=== PATIENT | female | born 1975 | race Caucasian/White ===

== ENCOUNTER 2017-02-18 06:46 | Emergency (ER) | payer BC, OTHER ==
[2017-02-18 06:56] VITALS: BMI 25.8
[2017-02-18 07:04] VITALS: BP 124/65; PULSE 74; RESP 17; TEMP 98.7; O2SAT 97
--- NOTE | 2017-02-18 07:27 | ED PDOC ---
Arrival/HPI - General Chief Complaint: Medical Clearance Time Seen by Provider: 02/18/17 07:13 Historian: Patient - History of Present Illness Narrative History of Present Illness (Text): 02/18/17 07:24 A 41 year old female, whose past medical history includes anxiety, depression and bipolar disorder, not on any medication, presents to the emergency department complaining of not being able to sleep for the past 7 days. Patient reports she took sleeping aid pills and other medications, with no relief. Patient denies any fever, chills, nausea, vomiting, diarrhea, abdominal pain, chest pain, shortness of breath or any other complaints. Patient reports she has a family history of insomnia. PMD: Dr. Tay Hernandez Time/Duration: Other (7 days) Symptom Course: Unchanged Quality: Other Context: Home Past Medical History - Provider Review Nursing Documentation Reviewed: Yes - Past History Past History: No Previous - Infectious Disease Hx of Infectious Diseases: None - Tetanus Immunization Tetanus Immunization: Unknown - Past Medical History Past Medical History: No Previous - Cardiac Hx Cardiac Arrhythmia: No Hx Congestive Heart Failure: No Hx Hypertension: No Hx Mitral Valve Prolapse: No Hx Pacemaker: No Hx Peripheral Edema: No - Pulmonary Hx Asthma: No Hx Bronchitis: No Hx Chronic Obstructive Pulmonary Disease (COPD): No Hx Emphysema: No Hx Pneumonia: No Hx Sleep Apnea: No - Neurological Hx Alzheimer's Disease: No Hx Dementia: No Hx Migraine: No Hx Parkinson's Disease: No Hx Seizures: No Hx Transient Ischemic Attacks (TIA): No - HEENT Hx HEENT Disorder: No - Renal Hx Renal Disorder: No - Endocrine/Metabolic Hx Endocrine Disorders: No - Hematological/Oncological Hx Blood Disorders: No - Integumentary Hx Dermatological Disorder: No - Musculoskeletal/Rheumatological Hx Arthritis: Yes (right hip) - Gastrointestinal Hx Gastrointestinal Disorders: No - Genitourinary/Gynecological Hx Sexually Transmitted Diseases: Yes (Herpes) - Psychiatric Hx Bipolar Disorder: Yes Hx Depression: Yes Hx Substance Use: Yes - Past Surgical History Past Surgical History: No Previous - Surgical History Hx Coronary Stent: No Hx Orthopedic Surgery: Yes (R Elbow sx) - Anesthesia Hx Anesthesia: Yes Hx Anesthesia Reactions: No Hx Malignant Hyperthermia: No - Suicidal Assessment Feels Threatened In Home Enviroment: No Family/Social History - Physician Review Nursing Documentation Reviewed: Yes Family/Social History: No Known Family HX Smoking Status: Light Smoker < 10 Cigarettes Daily Hx Alcohol Use: Yes Hx Substance Use: Yes Substance used: marijuana, opiods Hx Substance Use Treatment: No Allergies/Home Meds Allergies/Adverse Reactions: Allergies No Known Allergies Allergy (Verified 02/09/16 13:54) Home Medications: Home Meds Medication Instructions Recorded Confirmed Tramadol HCl [Tramadol HCl] 50 mg PO PRN PRN 07/11/15 07/11/15 Review of Systems - Physician Review All systems were reviewed & negative as marked: Yes - Review of Systems Constitutional: Other (Unable to sleep). absent: Fevers, Night Sweats Respiratory: absent: SOB Cardiovascular: absent: Chest Pain Gastrointestinal: absent: Abdominal Pain, Nausea, Vomiting Physical Exam Vital Signs Reviewed: Yes Vital Signs Temp Pulse Resp BP Pulse Ox 02/18/17 07:03 98.7 F 74 17 124/65 97 Temperature: Afebrile Blood Pressure: Normal Pulse: Regular Respiratory Rate: Normal Appearance: Positive for: Well-Appearing, Non-Toxic, Comfortable Pain Distress: None Mental Status: Positive for: Alert and Oriented X 3 - Systems Exam Head: Present: Atraumatic, Normocephalic Pupils: Present: PERRL Extroacular Muscles: Present: EOMI Conjunctiva: Present: Normal Mouth: Present: Moist Mucous Membranes Neurological: Present: GCS=15, CN II-XII Intact, Speech Normal Skin: Present: Warm, Dry, Normal Color. No: Rashes Psychiatric: Present: Alert, Oriented x 3, Normal Insight, Normal Concentration Medical Decision Making ED Course and Treatment: 02/18/17 08:45 Patient evaluated by PES susanne rBaga, who states patient can be discharged home with prescription for Trazodone. Plan discussed with the patient, who expresses understanding. Patient in agreement with plan to be discharged home. Patient is stable for discharge. Patient was instructed to follow up with psychiatrist or return if symptoms worsen or new concerning symptoms arise. - Scribe Statement The provider has reviewed the documentation as recorded by the Chandra King Provider Scribe Attestation: All medical record entries made by the Scribe were at my direction and personally dictated by me. I have reviewed the chart and agree that the record accurately reflects my personal performance of the history, physical exam, medical decision making, and the department course for this patient. I have also personally directed, reviewed, and agree with the discharge instructions and disposition. Disposition/Present on Arrival - Present on Arrival Any Indicators Present on Arrival: No History of DVT/PE: No History of Uncontrolled Diabetes: No Urinary Catheter: No History of Decub. Ulcer: No History Surgical Site Infection Following: None - Disposition Diagnosis: Sleep disturbance Disposition: HOME/ ROUTINE Disposition Time: 08:45 Patient Problems: Current Active Problems Problem Status Onset Sleep disturbance Acute Condition: STABLE Additional Instructions: Please follow up with your primary doctor. Return to the ER for any worsening symptoms or for any other concerns. Referrals: Tay Hernandez MD [Primary Care Provider] - Follow up with primary
--- NOTE | 2017-02-18 11:14 | CON ---
DATE: 02/18/2017 HISTORY OF PRESENT ILLNESS: Shortly, the patient is a 41-year-old female with reported history of bi polar disorder and insomnia. The patient came to the hospital looking for help for her insomnia. Th e patient reported that she was not sleeping for about 7 days. The patient has long history of menta l illness, has previous hospitalization to the psychiatric inpatient unit. Most recent was in [address] Rahman's name and Dr. Gerardo's name. The patient was not compliant with the medication and followup appointment. The patient has a second time worker job and patient requested to have some medication for her insomnia. The patient was offered admission to the psychiatric inpatient unit because of dep ressed mood as well as irritability and not able to sleep, difficult to stay focused, but the patient declined that offer. The patient reported that with sleeping aid, patient will be able to function well. The patient denied voices, denied seeing things, denied paranoid ideation. The patient does n ot present to be psychotic. The patient has future oriented plans. The patient has stable home. VITAL SIGNS: Stable. Temperature is 98.7, pulse 74, respirations 17, oxygen saturation is 97. MEDICATIONS: Reviewed, none. LABORATORY DATA: Reviewed. Cannabis positive. Besides that, everything within normal limits. MENTAL STATUS EXAMINATION: The patient presented to be calm, cooperative, social appropriate. Fair eye contact. Speech was normal rate, tone, quality, and quantity. Mood described, "I am irritable a nd I cannot sleep." Affect was reactive, mood congruent. Thought process was coherent and goal dire cted. Thought content: The patient denied visual, auditory, tactile hallucinations. Denied paranoi d ideations. The patient denied thoughts of harming herself or others, denied intent or plan. No ps ychotic symptoms were elicited or reported. Insight and judgment fair. Impulses are well controlled . IMPRESSION: As per history, bipolar disorder, insomnia, history of anxiety disorder, cannabis abuse. PLAN: The patient reported that she was doing well on trazodone 150 mg in the past. This script writer edu cated about risks, benefits, alternatives of that medication. The patient verbalized understanding. Will provide 50 mg of trazodone prescription for a 7-day supply. The patient initiated intake at [facility] outpatient clinic. The patient was advised to take medication as it was prescribed and follow up with outpatient psychiatrist and therapist. The patient said that she w ill definitely do so. Besides that, there are no other complaints. Case was discussed with Dr. Jessica kessler. Should you have any questions, give me a call back. Thank you very much for letting me participate in the care of your patient. Sharmaine Shanks MD cc: [id number] TT: 02/18/2017 11:13:41 Confirmation # [id number] Dictation # [id number] rn
== END 2017-02-18 09:00 | disposition home or self-care (01) ==
LOC: ED 06:46
DX: G47.9 Sleep disorder, unspecified (principal); F17.210 Nicotine dependence, cigarettes, uncomplicated

== ENCOUNTER 2017-02-25 11:09 | Inpatient (IN) | payer OTHER ==
[2017-02-25 11:09] VITALS: BMI 25.8
--- NOTE | 2017-02-25 11:26 | ED PDOC ---
Arrival/HPI - General Time Seen by Provider: 02/25/17 11:10 Historian: Patient - History of Present Illness Narrative History of Present Illness (Text): 02/25/17 11:20 41 year old female whose past medical history includes depression and bipolar disorder presents with suspected manic episode. Patient is pacing around the emergency department yelling obscenities at the staff. Noted patient was evaluated by PES 1 week ago and discharged home. Patient states she wants to hurt other people. Time/Duration: < week Symptom Onset: Gradual Symptom Course: Unchanged Modifying Factors (Text): None Past Medical History - Provider Review Nursing Documentation Reviewed: Yes - Past History Past History: No Previous - Infectious Disease Hx of Infectious Diseases: None - Tetanus Immunization Tetanus Immunization: Unknown - Past Medical History Past Medical History: No Previous - Cardiac Hx Cardiac Arrhythmia: No Hx Congestive Heart Failure: No Hx Hypertension: No Hx Mitral Valve Prolapse: No Hx Pacemaker: No Hx Peripheral Edema: No - Pulmonary Hx Asthma: No Hx Bronchitis: No Hx Chronic Obstructive Pulmonary Disease (COPD): No Hx Emphysema: No Hx Pneumonia: No Hx Sleep Apnea: No - Neurological Hx Alzheimer's Disease: No Hx Dementia: No Hx Migraine: No Hx Parkinson's Disease: No Hx Seizures: No Hx Transient Ischemic Attacks (TIA): No - HEENT Hx HEENT Disorder: No - Renal Hx Renal Disorder: No - Endocrine/Metabolic Hx Endocrine Disorders: No - Hematological/Oncological Hx Blood Disorders: No - Integumentary Hx Dermatological Disorder: No - Musculoskeletal/Rheumatological Hx Arthritis: Yes (right hip) - Gastrointestinal Hx Gastrointestinal Disorders: No - Genitourinary/Gynecological Hx Sexually Transmitted Diseases: Yes (Herpes) - Psychiatric Hx Bipolar Disorder: Yes Hx Depression: Yes Hx Substance Use: Yes - Past Surgical History Past Surgical History: No Previous - Surgical History Hx Coronary Stent: No Hx Orthopedic Surgery: Yes (R Elbow sx) - Anesthesia Hx Anesthesia: Yes Hx Anesthesia Reactions: No Hx Malignant Hyperthermia: No - Suicidal Assessment Feels Threatened In Home Enviroment: No Family/Social History - Physician Review Nursing Documentation Reviewed: Yes Family/Social History: Unknown Family HX Smoking Status: Light Smoker < 10 Cigarettes Daily Hx Alcohol Use: Yes Hx Substance Use: Yes Substance used: marijuana, opiods Hx Substance Use Treatment: No Allergies/Home Meds Allergies/Adverse Reactions: Allergies No Known Allergies Allergy (Verified 02/09/16 13:54) Review of Systems - Physician Review All systems were reviewed & negative as marked: Yes - Review of Systems Respiratory: absent: Cough Cardiovascular: absent: Chest Pain Gastrointestinal: absent: Abdominal Pain Neurological: absent: Dizziness Psychiatric: Other (Homicidal ideation, Suspected manic episode) Physical Exam Vital Signs Reviewed: Yes Vital Signs Temp Pulse Resp BP Pulse Ox 02/25/17 11:42 98.5 F 113 H 20 137/98 H 99 Temperature: Afebrile Blood Pressure: Normal Pulse: Tachycardic Respiratory Rate: Normal Appearance: Positive for: Well-Appearing, Non-Toxic Pain Distress: None Mental Status: Positive for: Alert and Oriented X 3 - Systems Exam Head: Present: Atraumatic, Normocephalic Pupils: Present: PERRL Extroacular Muscles: Present: EOMI Conjunctiva: Present: Normal Mouth: Present: Moist Mucous Membranes Neck: Present: Normal Range of Motion Respiratory/Chest: Present: Clear to Auscultation, Good Air Exchange. No: Respiratory Distress, Accessory Muscle Use Cardiovascular: Present: Regular Rate and Rhythm, Normal S1, S2. No: Murmurs Abdomen: Present: Normal Bowel Sounds. No: Tenderness, Distention, Peritoneal Signs Back: Present: Normal Inspection Upper Extremity: Present: Normal Inspection. No: Cyanosis, Edema Lower Extremity: Present: Normal Inspection. No: Edema Neurological: Present: GCS=15, CN II-XII Intact, Speech Normal Skin: Present: Warm, Dry, Normal Color. No: Rashes Psychiatric: Present: Alert, Oriented x 3, Normal Concentration, Agitated, Homicidal Ideation, Other (Yelling obscenities) Medical Decision Making ED Course and Treatment: Impression: 41 year old female whose past medical history includes depression and bipolar disorder presents with suspected manic episode Differential Diagnosis include but are not limited to: Manic episode Plan: -- EKG, Chest X-ray -- Ativan -- Labs -- PES -- Reassess and disposition Prior Visits: Notes and results from previous visits were reviewed. Patient last seen in ED on 02/18/17 complaining of lack of sleep, seen by PES, and discharged home. Progress Notes: 02/25/17 12:45 pt with nonspecific ekg changes, no cardiopulm complaints. trop neg. now cooperative s/p ativan. pt cleared for pes. accepte dby dr valle - Lab Interpretations Lab Results: 02/25/17 11:30 02/25/17 11:30 Lab Results 02/25/17 11:30: Alcohol, Quantitative < 10 02/25/17 11:30: Salicylates < 1 L, Acetaminophen < 10.0 L 02/25/17 11:30: Urine Opiates Screen Negative, Urine Methadone Screen Negative, Ur Barbiturates Screen Negative, Ur Phencyclidine Scrn Negative, Ur Amphetamines Screen Negative, U Benzodiazepines Scrn Positive H, U Oth Cocaine Metabols Negative, U Cannabinoids Screen Positive H 02/25/17 11:30: Sodium 143, Potassium 3.9, Chloride 109 H, Carbon Dioxide 21, Anion Gap 17, BUN 9, Creatinine 0.8, Est GFR ( Amer) > 60, Est GFR (Non- Af Amer) > 60, Random Glucose 133 H, Calcium 9.8, Total Bilirubin 0.8, AST 19, ALT 23, Alkaline Phosphatase 81, Lactate Dehydrogenase 437, Total Creatine Kinase 73, Troponin I < 0.01, Total Protein 8.5 H, Albumin 5.1 H, Globulin 3.4, Albumin/Globulin Ratio 1.5 02/25/17 11:30: Urine Color Yellow, Urine Appearance Sl cloudy, Urine pH 5.5, Ur Specific [place] 1.015, Urine Protein Negative, Urine Glucose (UA) Negative, Urine Ketones Negative, Urine Blood Small H, Urine Nitrate Negative, Urine Bilirubin Negative, Urine Urobilinogen 0.2, Ur Leukocyte Esterase Moderate H, Urine RBC 0 - 2, Urine WBC 1 - 3, Ur Epithelial Cells 6 - 8, Urine Bacteria Few , Urine HCG, Qual Negative 02/25/17 11:30: WBC 10.1 D, RBC 5.63, Hgb 17.0 H, Hct 47.2, MCV 83.8, MCH 30.2 , MCHC 36.0, RDW 13.0, Plt Count 412, MPV 9.4, Gran % 60.9, Lymph % (Auto) 32.1 , [place] % (Auto) 4.4, Eos % (Auto) 1.9, Baso % (Auto) 0.7, Gran # 6.18, Lymph # 3.3, [place] # 0.5, Eos # 0.2, Baso # 0.07 - RAD Interpretation Radiology Orders: 02/25/17 11:19 CHEST PORTABLE [RAD] Stat - EKG Interpretation Interpreted by ED Physician: Yes (EKG shows NSR at 73 BPM, nonspecific ST/T wave changes) Type: 12 lead EKG - Medication Orders Current Medication Orders: Discontinued Medications Lorazepam (Ativan) 2 mg IM STAT STA Stop: 02/25/17 11:20 Last Admin: 02/25/17 11:30 Dose: 2 mg - Scribe Statement The provider has reviewed the documentation as recorded by the Chandra Rubio Provider Scribe Attestation: All medical record entries made by the Chandra were at my direction and personally dictated by me. I have reviewed the chart and agree that the record accurately reflects my personal performance of the history, physical exam, medical decision making, and the department course for this patient. I have also personally directed, reviewed, and agree with the discharge instructions and disposition. Disposition/Present on Arrival - Present on Arrival Any Indicators Present on Arrival: No History of DVT/PE: No History of Uncontrolled Diabetes: No Urinary Catheter: No History Surgical Site Infection Following: None - Disposition Have Diagnosis and Disposition been Completed?: Yes Diagnosis: Bipolar 1 disorder Disposition: HOSPITALIZED Disposition Time: 12:39 Patient Problems: Current Active Problems Problem Status Onset Bipolar 1 disorder Acute Condition: STABLE Referrals: Luis Sal, [Primary Care Provider] - Follow up with primary
[2017-02-25 11:43] VITALS: O2SAT 99
[2017-02-25 11:51] LABS: BASO # 0.07 K/mm3 (0.0-2.0); BASO % 0.7 % (0.0-3.0); EOS # 0.2 (0.0-0.7); EOS % 1.9 % (1.5-5.0); GRAN # 6.18 (1.4-6.5); GRAN % 60.9 % (50.0-68.0); LYMPH # 3.3 (1.2-3.4); LYMPH % 32.1 % (22.0-35.0); MEAN CELL VOLUME 83.8 fL (80.0-105.0); MEAN CORPUSCULAR HEMOGLOBIN 30.2 pg (25.0-35.0); MEAN PLATELET VOLUME 9.4 fl (7.0-11.0); MONO # 0.5 (0.1-0.6); MONO % 4.4 % (1.0-6.0); PH,URINE 5.5 (4.7-8.0); PLATELET COUNT 412 10^3/uL (120.0-450.0); RBC 5.63 10^6/uL (3.5-6.1); URINE BILIRUBIN NEGATIVE (NEGATIVE); URINE BLOOD SMALL (NEGATIVE); URINE GLUCOSE (UA) NEGATIVE (NEGATIVE); URINE LEUKOCYTE ESTERASE MODERATE Leu/uL (NEGATIVE); URINE NITRATE NEGATIVE (NEGATIVE); URINE PROTEIN NEGATIVE mg/dL (<30 mg/dL); URINE UROBILINOGEN 0.2 E.U./dL (<1 E.U./dL); WHITE BLOOD COUNT 10.1 10^3/ul (4.5-11.0)
[2017-02-25 11:52] LABS: URINE APPEARANCE SL CLOUDY (CLEAR); URINE COLOR YELLOW (YELLOW)
[2017-02-25 11:54] LABS: URINE BACTERIA FEW (NEG); URINE RBC 0 - 2 /hpf (0-2)
[2017-02-25 11:55] LABS: HCG,QUALITATIVE URINE NEGATIVE (NEGATIVE)
[2017-02-25 12:01] LABS: SALICYLATE < 1 mg/dL (2.0-20.0)
[2017-02-25 12:07] LABS: ALB/GLOB RATIO 1.5 (1.1-1.8); ALBUMIN 5.1 g/dL (3.0-4.8); ALT/SGPT 23 U/L (7-56); AST/SGOT 19 U/L (15-39); BLOOD UREA NITROGEN 9 mg/dL (7-21); CALCIUM 9.8 mg/dL (8.4-10.5); GFR AFRICAN-AMERICAN > 60; GFR NON-AFRICAN AMERICAN > 60
[2017-02-25 12:15] LABS: ACETAMINOPHEN < 10.0 ug/ml (10.0-20.0)
[2017-02-25 12:16] LABS: BARBITURATES, UR NEGATIVE (NEGATIVE); BENZODIAZEPINES, UR POSITIVE (NEGATIVE); OPIATES, UR NEGATIVE (NEGATIVE); PHENCYCLIDINE, UR NEGATIVE (NEGATIVE)
[2017-02-25 12:39] LABS: TROPONIN I < 0.01 ng/mL
--- NOTE | 2017-02-25 13:15 | RAD ---
HISTORY: pes COMPARISON: No prior. FINDINGS: LUNGS: No active pulmonary disease. PLEURA: No significant pleural effusion identified, no pneumothorax apparent. CARDIOVASCULAR: Normal. OSSEOUS STRUCTURES: No significant abnormalities. VISUALIZED UPPER ABDOMEN: Normal. OTHER FINDINGS: None. IMPRESSION: No active disease.
--- NOTE | 2017-02-25 17:03 | PCM.BM ---
<Jake Corona - Last Filed: 02/25/17 17:08> Treatment Plan Problems - Problems identified on initial assessmt AGITATED/AGGRESSIVE Date Initiated: 02/25/17 Time Initiated: 17:02 Assessment reference: NA Status: Active ALTERED SLEEP PATTERN Date Initiated: 02/25/17 Time Initiated: 17:03 Assessment reference: NA Status: Active ALTERED THOUGHT PROCESS Date Initiated: 02/25/17 Time Initiated: 17:04 Assessment reference: NA Status: Active (AUDITORY HALLUCINATIONS) INEFFECTIVE IMPULSE CONTROL Date Initiated: 02/25/17 Time Initiated: 17:06 Assessment reference: NA Status: Active Treatment assets and liabiliti Patient Assests: adapts well, motivated, self-reliant, physically healthy, negotiates basic needs, financial stabiity Patient Liabilities: relationship conflicts - Milieu Protocol Maintain good personal hygiene: daily Encourage regular showers, daily Remind patient to perform daily oral care, daily Assist patient to perform ADL's Maintain personal safety: daily Educate patient to report safety concerns to staff, daily Monitor environment for contraband/sharps Medication safety: Monitor for expected outcome, potential side effects: daily, Assess barriers to learning: daily, Assess readiness for medication education: daily Discharge/Continuing Care - Education Needs Education Needs: Family Medication, Family Diagnosis/Disease Process, Family Coping Skills, Family Anger Management skills, Family Activities of Daily Living - Discharge Discharge Criteria: Tolerates medication w/o severe side effects, Free of Suicidal thoughts, Free of Homicidal thoughts, Free of paranoid thoughts, Free of agitation, Normal sleep pattern Discharge to:: Home <Sharmaine Shanks - Last Filed: 02/28/17 11:54> - Diagnosis (1) Psychosis Status: Acute Interventions: 02/26/17 08:41 * Assess/adjust medications daily and /or as needed * Discuss risks, benefits, sided effects and alternatives of medications * See patient on an individual basis 7x/week to assess level of delusional thoughts/ideation, hallucinations * medication compliance * regular follow up with outpatient psychiatrist * coping strategies * substance abuse prevention * suicide and homicide prevention (2) Bipolar 1 disorder Status: Acute Interventions: 02/26/17 08:42 * Assess/adjust medications daily and /or as needed * See patient on an individual basis 7x/week to assess level of manic behaviors and stability * Discuss risks, benefits, side effects and alternatives of medications * medications compliance * safety plan * regular follow up with psychiatrist * suicide and homicide prevention * coping strategies * substance abuse prevention * sleep regulation, sleep hygiene <Shanta Ching - Last Filed: 02/28/17 14:49> Family Contact Family involvement: Family/SO is involved - Goals for Treatment Patient's family/SO goals for treatment: To find an outpatient provider.
--- NOTE | 2017-02-25 20:00 | CARD ---
APPROVED REPORT EKG Measurement Heart [id number] <Conclusion> Normal sinus rhythm with sinus arrhythmia Junctional ST depression, probably normal Borderline ECG
[2017-02-25] MEDS: Divalproex 500 mg DR(BID formulation) PO SCH (22:09)
[2017-02-26 07:42] LABS: GLUCOSE,FASTING 96 mg/dL (65-110); HDL CHOLESTEROL 51 mg/dL (29-60)
[2017-02-26 07:52] LABS: LDL CHOLESTEROL 124 mg/dL (0-129)
[2017-02-26 07:59] LABS: FREE T4 1.01 ng/dL (0.78-2.19)
[2017-02-26] MEDS: Divalproex 500 mg DR(BID formulation) PO SCH ×2 (09:27→21:03)
[2017-02-26] MEDS ORDERED: Magnesium Hydroxide Susp 30 ml UD ONE (17:49)
[2017-02-26] MEDS ORDERED: Magnesium Hydroxide Susp 30 ml UD PO PRN (21:13)
[2017-02-26] MEDS ORDERED: Alum-Mag Hydrox-Simethicone Susp (30 mL) PO PRN (21:14)
--- NOTE | 2017-02-26 22:00 | CP.PCM.CON ---
History of Present Illness - History of Present Illness History of Present Illness: I was called to do a consult on Brianda Hassan in the psychiatric floor I saw her resting in bed she is a 41-year-old white female with history of being in out of the emergency room with manic episodes and this time stating she wants to hurt other people PES evaluate her a week ago and discharged home she is a past medical history includes depression anxiety bipolar manic episodes history of herpes substance abuse she had a right elbow fracture in the past unknown family history she still smokes she drinks alcohol substance abuse including marijuana and opioids no known drug allergies review of systems no acute vision changes no hearing changes no sore throat no chest pain of palpitations or shortness of breath no cough no abdominal pain no constipation diarrhea nausea vomiting not dizzy manic states she wants her other people but at this time pleasant and calm Review of Systems - Musculoskeletal Additional comments: Right elbow pain from recent surgery Past Patient History - Infectious Disease Hx of Infectious Diseases: None - Tetanus Immunizations Tetanus Immunization: Unknown - Past Social History Smoking Status: Light Smoker < 10 Cigarettes Daily - CARDIAC Hx Cardia Arrhythmia: No Hx Congestive Heart Failure: No Hx Hypertension: No Hx Mitral Valve Prolapse: No Hx Pacemaker: No Hx Peripheral Edema: No - PULMONARY Hx Asthma: No Hx Bronchitis: No Hx Chronic Obstructive Pulmonary Disease (COPD): No Hx Emphysema: No Hx Pneumonia: No Hx Sleep Apnea: No - NEUROLOGICAL Hx Alzheimer's Disease: No Hx Dementia: No Hx Migraine: No Hx Parkinson's Disease: No Hx Seizures: No Hx Transient Ischemic Attacks (TIA): No - HEENT Hx HEENT Problems: No - RENAL Hx Chronic Kidney Disease: No - ENDOCRINE/METABOLIC Hx Endocrine Disorders: No - HEMATOLOGICAL/ONCOLOGICAL Hx Blood Disorders: No - INTEGUMENTARY Hx Dermatological Problems: No - MUSCULOSKELETAL/RHEUMATOLOGICAL Hx Arthritis: Yes (right hip) - GASTROINTESTINAL Hx Gastrointestinal Disorders: No - GENITOURINARY/GYNECOLOGICAL Hx Sexually Transmitted Disorders: Yes (Herpes) - PSYCHIATRIC Hx Bipolar Disorder: Yes Hx Substance Use: Yes - SURGICAL HISTORY Hx Coronary Stent: No Hx Orthopedic Surgery: Yes (R Elbow sx) - ANESTHESIA Hx Anesthesia: Yes Hx Anesthesia Reactions: No Hx Malignant Hyperthermia: No Meds Allergies/Adverse Reactions: Allergies Allergy/AdvReac Type Severity Reaction Status Date / Time No Known Allergies Allergy Verified 02/25/17 17:10 - Medications Medications: Current Medications Acetaminophen (Tylenol 325mg Tab) 650 mg PO Q6H PRN PRN Reason: MILD TO MOD PAIN Al Hydrox/Mg Hydrox/Simethicone (Maalox Plus 30 Ml) 30 ml PO DAILY PRN PRN Reason: HEARTBURN/INDIGESTION Clonazepam (Klonopin) 1 mg PO HS HEENA PRN Reason: Protocol Last Admin: 02/26/17 21:03 Dose: 1 mg Clonazepam (Klonopin) 1 mg PO BID HEENA PRN Reason: Protocol Divalproex Sodium (Depakote Dr(*Bid*)) 500 mg PO [facility] Last Admin: 02/26/17 21:03 Dose: 500 mg Magnesium Hydroxide (Milk Of Magnesia) 30 ml PO DAILY PRN PRN Reason: constipation Nicotine (Nicoderm Cq) 1 patch TD DAILY [facility]EENA Risperidone (Risperdal Tab) 1 mg PO BID HEENA PRN Reason: Protocol Ziprasidone (Geodon Cap) 20 mg PO Q6H PRN; Protocol PRN Reason: Agitation Last Admin: 02/26/17 21:02 Dose: 20 mg Ziprasidone (Geodon Inj) 20 mg IM Q6H PRN; Protocol PRN Reason: Agitation Zolpidem Tartrate (Ambien) 5 mg PO HS HEENA PRN Reason: Protocol Last Admin: 02/26/17 21:03 Dose: 5 mg Physical Exam - Constitutional Appears: No Acute Distress - Head Exam Head Exam: ATRAUMATIC, NORMAL INSPECTION, NORMOCEPHALIC - ENT Exam ENT Exam: Mucous Membranes Dry - Respiratory Exam Respiratory Exam: Clear to Auscultation Bilateral, NORMAL BREATHING PATTERN - Cardiovascular Exam Cardiovascular Exam: REGULAR RHYTHM - GI/Abdominal Exam GI & Abdominal Exam: Normal Bowel Sounds - Extremities Exam Extremities exam: Positive for: normal inspection - Neurological Exam Neurological exam: Alert, CN II-XII Intact, Oriented x3 - Psychiatric Exam Psychiatric exam: Anxious - Skin Skin Exam: Warm Results - Vital Signs Recent Vital Signs: Last Vital Signs Temp 98.6 F 02/25/17 13:45 Pulse 79 02/25/17 16:00 Resp 16 02/25/17 13:45 BP 147/84 02/25/17 16:00 Pulse Ox 99 02/25/17 13:45 - Labs Result Diagrams: 02/25/17 11:30 02/25/17 11:30 Labs: Laboratory Results - last 24 hr 02/26/17 02/26/17 07:10 07:10 Fasting Glucose 96 Triglycerides 96 Cholesterol 182 LDL Cholesterol Direct 124 HDL Cholesterol 51 Free T4 1.01 TSH 3rd Generation 0.90 Assessment & Plan - Assessment and Plan (Free Text) Assessment: She is here with manic phase of bipolar with high blood sugar will watch that marijuana and opioid use Plan: We will recheck the labs encouraged her to participate in psychiatric groups take the medication hopefully she will improve watch medically I went over all the labs EKGs and chest x-rays will discuss with the psychiatrist
[2017-02-27] MEDS: Divalproex 500 mg DR(BID formulation) PO SCH ×2 (09:35→21:24)
--- NOTE | 2017-02-27 11:02 | PCM.PYCHPN ---
Psychiatric Progress Note - Psychiatric Progress Note Patient seen today, length of contact: 30min Patient Chief Complaint: "I feel irritable still, I have thoughts of harming myself, but no plan, I have no complaints about my medications..." Problems Identified/Issues Discussed: Suicide/ homicide prevention, past psychiatric h/o, current psychiatric symptoms , medical problems, risk/benefits and alternatives of medications, medications compliance, coping strategies, substance abuse h/o, relapse prevention, importance of follow up with psychiatrist and therapist, discharge plan. Medical Problems: pt reported being healthy high blood sugar Diagnostic Results: 02/25/17 11:30 02/25/17 11:30 Lab Results 02/26/17 07:10: Free T4 1.01, TSH 3rd Generation 0.90 02/26/17 07:10: Fasting Glucose 96, Triglycerides 96, Cholesterol 182, LDL Cholesterol Direct 124, HDL Cholesterol 51 02/25/17 11:30: Alcohol, Quantitative < 10 02/25/17 11:30: Salicylates < 1 L, Acetaminophen < 10.0 L 02/25/17 11:30: Urine Opiates Screen Negative, Urine Methadone Screen Negative, Ur Barbiturates Screen Negative, Ur Phencyclidine Scrn Negative, Ur Amphetamines Screen Negative, U Benzodiazepines Scrn Positive H, U Oth Cocaine Metabols Negative, U Cannabinoids Screen Positive H 02/25/17 11:30: Sodium 143, Potassium 3.9, Chloride 109 H, Carbon Dioxide 21, Anion Gap 17, BUN 9, Creatinine 0.8, Est GFR ( Amer) > 60, Est GFR (Non- Af Amer) > 60, Random Glucose 133 H, Calcium 9.8, Total Bilirubin 0.8, AST 19, ALT 23, Alkaline Phosphatase 81, Lactate Dehydrogenase 437, Total Creatine Kinase 73, Troponin I < 0.01, Total Protein 8.5 H, Albumin 5.1 H, Globulin 3.4, Albumin/Globulin Ratio 1.5 02/25/17 11:30: Urine Color Yellow, Urine Appearance Sl cloudy, Urine pH 5.5, Ur Specific [place] 1.015, Urine Protein Negative, Urine Glucose (UA) Negative, Urine Ketones Negative, Urine Blood Small H, Urine Nitrate Negative, Urine Bilirubin Negative, Urine Urobilinogen 0.2, Ur Leukocyte Esterase Moderate H, Urine RBC 0 - 2, Urine WBC 1 - 3, Ur Epithelial Cells 6 - 8, Urine Bacteria Few , Urine HCG, Qual Negative 02/25/17 11:30: WBC 10.1 D, RBC 5.63, Hgb 17.0 H, Hct 47.2, MCV 83.8, MCH 30.2 , MCHC 36.0, RDW 13.0, Plt Count 412, MPV 9.4, Gran % 60.9, Lymph % (Auto) 32.1 , [place] % (Auto) 4.4, Eos % (Auto) 1.9, Baso % (Auto) 0.7, Gran # 6.18, Lymph # 3.3, [place] # 0.5, Eos # 0.2, Baso # 0.07 Vital Signs Temp Pulse Resp BP Pulse Ox 02/27/17 07:43 98.4 F 67 20 135/69 02/25/17 16:00 79 147/84 02/25/17 13:45 98.6 F 70 16 116/88 99 02/25/17 11:42 98.5 F 113 H 20 137/98 H 99 DSM 5 Symptoms Update: shortly pt is 41yo female, reported h/o bipolar disorder, h/o psychiatric admissions, most recent was in 2013, h/o suicidal attempts (most recent was about 5-6 years ago by overdose on meds), pt currently employed, lives with her 20yo son. Pt was seen by this content writer in the ED 02/18, this content writer offered admission, pt did not want to stay, this content writer provided pt with prescription for Trazodone (pt tolerated this medication well in the past), pt said that she has scheduled appt in the [facility], pt was d/c AMA. this time pt came to the hospital looking for help for her depressive/ manic episode, irritability, suicidal and homicidal ideation, was not able to contract for safety, pt needed to be medicated in ED. at the day of admission pt was agitated, threw tray, needed to be medicated ([facility] [place]) pt requested to be alone in the room because pt was not able to control her anger. yesterday pt was agitated, showing middle finger to RN, tried to destroy unit decorations, needed to be medicated, redirected. today pt has some improvement with her irritability, was able to sit still (yesterday pt was pacing in the unit, was not able to stay still, agitated), was able to concentrate and watching TV. pt said that she slept better but "I woke up at 5am and was not able to fall asleep", pt said that she is still irritable, now she has thoughts of harming self only, denied thoughts of harming others, pt said she still have "voices in my head, not in my ears". pt has labile affect still. pt tolerates meds well, no side effects observed or reported, AIMS 0, no EPS. as pt RN report pt was compliant with meds, no behavioral incidents, pt still irritable, with some improvement with controlling her impulses. Impression: Bipolar disorder I, mixed episode, severe with psychosis cannabis abus r/o substance induced mood disorder Medication Change: Yes (ambien increased) Medical Record Reviewed: Yes Consults ordered or reviewed: consult appreciated Mental Status Examination - Cognitive Function Orientation: Person Memory: Intact Attention: Poor Concentration: Poor Association: WNL Fund of Knowledge: WNL - Mood Mood: Depressed (irritable and angry), Anxious - Affect Affect: Constricted (irritable, mood congruent), Flat - Speech Speech: Appropriate - Formal Thought Process Formal Thought Process: Hallucinations ("I hear voices in my head") - Suicidal Ideation Suicidal Ideation: Yes Plan: denied intent or plan contracted for safety - Homicidal Ideation Homicidal Ideation: Yes Goal/Treatment Plan - Goal/Treatment Plan Need for Continued Stay: Remain at risks for inpatient hospitalization, Severe depression anxiety, Discharge may exacerbated symptoms, Severe functional impairment Progress Toward Problem(s) and Goals/Treatment Plan: milieu/structure/supportive therapy depakote 500mg bid for mood stabilization risperdal 1mg bid (pt was started 0.5mg tid, tolerated well yesterday) ambien 10mg po hs for insomnia klonpin 1mg tid for mood stabilization d/c xanax, addictive med consult appreciated prn meds will monitor closely Estimated Date of D/C: 03/04/17 (will monitor closely)
--- NOTE | 2017-02-27 11:08 | CP.PCM.PN ---
Subjective - Date & Time of Evaluation Date of Evaluation: 02/27/17 Time of Evaluation: 10:00 - Subjective Subjective: seen in room feeling much better no c/os back on her meds no more bad thoughts eats well participating Objective - Vital Signs/Intake and Output Vital Signs (last 24 hours): Temp Pulse Resp BP Pulse Ox 98.4 F 67 20 135/69 99 02/27/17 07:43 02/27/17 07:43 02/27/17 07:43 02/27/17 07:43 02/25/17 13:45 - Medications Medications: Current Medications Acetaminophen (Tylenol 325mg Tab) 650 mg PO Q6H PRN PRN Reason: MILD TO MOD PAIN Al Hydrox/Mg Hydrox/Simethicone (Maalox Plus 30 Ml) 30 ml PO DAILY PRN PRN Reason: HEARTBURN/INDIGESTION Clonazepam (Klonopin) 1 mg PO HS HEENA PRN Reason: Protocol Last Admin: 02/26/17 21:03 Dose: 1 mg Clonazepam (Klonopin) 1 mg PO BID HEENA PRN Reason: Protocol Last Admin: 02/27/17 09:35 Dose: 1 mg Divalproex Sodium (Depakote Dr(*Bid*)) 500 mg PO [facility] Last Admin: 02/27/17 09:35 Dose: 500 mg Magnesium Hydroxide (Milk Of Magnesia) 30 ml PO DAILY PRN PRN Reason: constipation Nicotine (Nicoderm Cq) 1 patch TD DAILY [facility] Last Admin: 02/27/17 09:35 Dose: 1 patch Risperidone (Risperdal Tab) 1 mg PO BID HEENA PRN Reason: Protocol Last Admin: 02/27/17 09:34 Dose: 1 mg Ziprasidone (Geodon Cap) 20 mg PO Q6H PRN; Protocol PRN Reason: Agitation Last Admin: 02/26/17 21:02 Dose: 20 mg Ziprasidone (Geodon Inj) 20 mg IM Q6H PRN; Protocol PRN Reason: Agitation Zolpidem Tartrate (Ambien) 10 mg PO HS HEENA PRN Reason: Protocol - Constitutional Appears: In Acute Distress - Head Exam Head Exam: NORMAL INSPECTION, NORMOCEPHALIC - ENT Exam ENT Exam: Mucous Membranes Moist - Respiratory Exam Respiratory Exam: Clear to Ausculation Bilateral, NORMAL BREATHING PATTERN - Cardiovascular Exam Cardiovascular Exam: REGULAR RHYTHM - GI/Abdominal Exam GI & Abdominal Exam: Soft, Normal Bowel Sounds - Neurological Exam Neurological Exam: Alert, Oriented x3 - Psychiatric Exam Psychiatric exam: Normal Affect, Normal Mood - Skin Skin Exam: Warm Assessment and Plan - Assessment and Plan (Free Text) Assessment: bipolar manic hi bs drug use Plan: went over meds labs tests seems to be improving as per psych will follow thank you
[2017-02-28 07:27] VITALS: RESP 20
--- NOTE | 2017-02-28 08:14 | CP.PCM.PN ---
Subjective - Date & Time of Evaluation Date of Evaluation: 02/28/17 Time of Evaluation: 08:00 - Subjective Subjective: seen in bed in the psyche unit doing better no c/os no pains trying in group thoughts are better wants to go home today and she thinks she is going home today Objective - Vital Signs/Intake and Output Vital Signs (last 24 hours): Temp Pulse Resp BP Pulse Ox 98.2 F 73 20 115/72 99 02/28/17 07:26 02/28/17 07:26 02/28/17 07:26 02/28/17 07:02/25/17 13:45 - Medications Medications: Current Medications Acetaminophen (Tylenol 325mg Tab) 650 mg PO Q6H PRN PRN Reason: MILD TO MOD PAIN Al Hydrox/Mg Hydrox/Simethicone (Maalox Plus 30 Ml) 30 ml PO DAILY PRN PRN Reason: HEARTBURN/INDIGESTION Clonazepam (Klonopin) 1 mg PO HS HEENA PRN Reason: Protocol Last Admin: 02/27/17 21:23 Dose: 1 mg Clonazepam (Klonopin) 1 mg PO BID HEENA PRN Reason: Protocol Last Admin: 02/27/17 16:33 Dose: 1 mg Divalproex Sodium (Depakote Dr(*Bid*)) 500 mg PO [facility] Last Admin: 02/27/17 21:24 Dose: 500 mg Magnesium Hydroxide (Milk Of Magnesia) 30 ml PO DAILY PRN PRN Reason: constipation Nicotine (Nicoderm Cq) 1 patch TD DAILY [facility] Last Admin: 02/27/17 09:35 Dose: 1 patch Risperidone (Risperdal Tab) 1 mg PO BID HEENA PRN Reason: Protocol Last Admin: 02/27/17 16:33 Dose: 1 mg Ziprasidone (Geodon Cap) 20 mg PO Q6H PRN; Protocol PRN Reason: Agitation Last Admin: 02/27/17 21:23 Dose: 20 mg Ziprasidone (Geodon Inj) 20 mg IM Q6H PRN; Protocol PRN Reason: Agitation Zolpidem Tartrate (Ambien) 10 mg PO HS HEENA PRN Reason: Protocol Last Admin: 02/27/17 21:23 Dose: 10 mg - Constitutional Appears: No Acute Distress - Head Exam Head Exam: NORMOCEPHALIC - ENT Exam ENT Exam: Mucous Membranes Moist - Respiratory Exam Respiratory Exam: Clear to Ausculation Bilateral, NORMAL BREATHING PATTERN - Cardiovascular Exam Cardiovascular Exam: REGULAR RHYTHM - GI/Abdominal Exam GI & Abdominal Exam: Soft, Normal Bowel Sounds - Extremities Exam Extremities Exam: Normal Inspection - Neurological Exam Neurological Exam: Alert, Oriented x3 - Skin Skin Exam: Warm Assessment and Plan - Assessment and Plan (Free Text) Assessment: bipolar s/p manic one hi bs anxiety depression thought s are better Plan: as per psych doing better cont w/ meds encouragement w/ participating in groups meds will follow thank you
[2017-02-28] MEDS: Divalproex 500 mg DR(BID formulation) PO SCH ×2 (09:17→22:14)
--- NOTE | 2017-02-28 14:35 | PCM.PYCHPN ---
Psychiatric Progress Note - Psychiatric Progress Note Patient seen today, length of contact: 30min Patient Chief Complaint: "I was hearing voices, telling me to be in trouble, destroy property, and hurt myself" Problems Identified/Issues Discussed: Suicide/ homicide prevention, past psychiatric h/o, current psychiatric symptoms , medical problems, risk/benefits and alternatives of medications, medications compliance, coping strategies, substance abuse h/o, relapse prevention, importance of follow up with psychiatrist and therapist, discharge plan. Medical Problems: pt reported being healthy high blood sugar Diagnostic Results: 02/25/17 11:30 02/25/17 11:30 Lab Results 02/26/17 07:10: Free T4 1.01, TSH 3rd Generation 0.90 02/26/17 07:10: Fasting Glucose 96, Triglycerides 96, Cholesterol 182, LDL Cholesterol Direct 124, HDL Cholesterol 51 02/25/17 11:30: Alcohol, Quantitative < 10 02/25/17 11:30: Salicylates < 1 L, Acetaminophen < 10.0 L 02/25/17 11:30: Urine Opiates Screen Negative, Urine Methadone Screen Negative, Ur Barbiturates Screen Negative, Ur Phencyclidine Scrn Negative, Ur Amphetamines Screen Negative, U Benzodiazepines Scrn Positive H, U Oth Cocaine Metabols Negative, U Cannabinoids Screen Positive H 02/25/17 11:30: Sodium 143, Potassium 3.9, Chloride 109 H, Carbon Dioxide 21, Anion Gap 17, BUN 9, Creatinine 0.8, Est GFR ( Amer) > 60, Est GFR (Non- Af Amer) > 60, Random Glucose 133 H, Calcium 9.8, Total Bilirubin 0.8, AST 19, ALT 23, Alkaline Phosphatase 81, Lactate Dehydrogenase 437, Total Creatine Kinase 73, Troponin I < 0.01, Total Protein 8.5 H, Albumin 5.1 H, Globulin 3.4, Albumin/Globulin Ratio 1.5 02/25/17 11:30: Urine Color Yellow, Urine Appearance Sl cloudy, Urine pH 5.5, Ur Specific [place] 1.015, Urine Protein Negative, Urine Glucose (UA) Negative, Urine Ketones Negative, Urine Blood Small H, Urine Nitrate Negative, Urine Bilirubin Negative, Urine Urobilinogen 0.2, Ur Leukocyte Esterase Moderate H, Urine RBC 0 - 2, Urine WBC 1 - 3, Ur Epithelial Cells 6 - 8, Urine Bacteria Few , Urine HCG, Qual Negative 02/25/17 11:30: WBC 10.1 D, RBC 5.63, Hgb 17.0 H, Hct 47.2, MCV 83.8, MCH 30.2 , MCHC 36.0, RDW 13.0, Plt Count 412, MPV 9.4, Gran % 60.9, Lymph % (Auto) 32.1 , [place] % (Auto) 4.4, Eos % (Auto) 1.9, Baso % (Auto) 0.7, Gran # 6.18, Lymph # 3.3, [place] # 0.5, Eos # 0.2, Baso # 0.07 Vital Signs Temp Pulse Resp BP Pulse Ox 02/27/17 07:43 98.4 F 67 20 135/69 02/25/17 16:00 79 147/84 02/25/17 13:45 98.6 F 70 16 116/88 99 02/25/17 11:42 98.5 F 113 H 20 137/98 H 99 DSM 5 Symptoms Update: shortly pt is 41yo female, reported h/o bipolar disorder, h/o psychiatric admissions, most recent was in 2013, h/o suicidal attempts (most recent was about 5-6 years ago by overdose on meds), pt currently employed, lives with her 20yo son. Pt was seen by this senior copywriter in the ED 02/18, this senior copywriter offered admission, pt did not want to stay, this senior copywriter provided pt with prescription for Trazodone (pt tolerated this medication well in the past), pt said that she has scheduled appt in the [facility] outpatient clinic, pt was d/c AMA. this time pt came to the hospital looking for help for her depressive/ manic episode, irritability, suicidal and homicidal ideation, was not able to contract for safety, pt needed to be medicated in ED. patient was seen today at the treatment team meeting, presented to be calm, good hygiene, the same time patient was agitated, needed to be medicated with Geodon, patient complained that she was hearing voices yesterday telling her to be in trouble, for example to hurt herself and destroyed property, patient said that she asked for help from the nursing staff and Geodon was given to her. Patient was in agreement to increase dose of Risperdal, patient was educated about potential EPS symptoms, Cogentin was added, patient was appreciated. patient reported that she had a good night sleep, reported that she tolerates medications well no side effects observed or reported, AIMS 0, no EPS. as pt RN report pt was compliant with meds, no behavioral incidents, pt still irritable, with some improvement with controlling her impulses, surgery patient required to be on medication when necessary. Impression: Bipolar disorder I, mixed episode, severe with psychosis cannabis abus r/o substance induced mood disorder Medication Change: Yes (Risperdal was increased, Cogentin added) Medical Record Reviewed: Yes Consults ordered or reviewed: consult appreciated Mental Status Examination - Cognitive Function Orientation: Person Memory: Intact Attention: Poor Concentration: Poor Association: WNL Fund of Knowledge: WNL - Mood Mood: Depressed (irritable and angry), Anxious - Affect Affect: Constricted (irritable, mood congruent), Flat - Speech Speech: Appropriate - Formal Thought Process Formal Thought Process: Hallucinations ("I hear voices in my head") - Suicidal Ideation Suicidal Ideation: Yes - Homicidal Ideation Homicidal Ideation: Yes Goal/Treatment Plan - Goal/Treatment Plan Need for Continued Stay: Remain at risks for inpatient hospitalization, Severe depression anxiety, Discharge may exacerbated symptoms, Severe functional impairment Progress Toward Problem(s) and Goals/Treatment Plan: milieu/structure/supportive therapy depakote 500mg bid for mood stabilization risperdal 2mg bid for psychosis and mood stabilization cogentin 0.5mg po bid for EPS prevention ambien 10mg po hs for insomnia klonpin 1mg tid for mood stabilization med consult appreciated prn meds will monitor closely Estimated Date of D/C: 03/04/17 (will monitor closely)
[2017-03-01] MEDS: Divalproex 500 mg DR(BID formulation) PO SCH ×2 (08:59→21:31)
[2017-03-01] MEDS ORDERED: Magnesium Hydroxide Susp 30 ml UD PO ONE (10:44)
--- NOTE | 2017-03-01 10:48 | CP.PCM.PN ---
Subjective - Date & Time of Evaluation Date of Evaluation: 03/01/17 Time of Evaluation: 10:00 - Subjective Subjective: seen in room on 5b w/ some constipation and looking for some mom to help her has nt gone in 2 days trying in groups feeling better improving Objective - Vital Signs/Intake and Output Vital Signs (last 24 hours): Temp Pulse Resp BP Pulse Ox 98.2 F 73 20 115/72 99 02/28/17 07:26 02/28/17 07:26 02/28/17 07:26 02/28/17 07:26 02/25/17 13:45 - Medications Medications: Current Medications Acetaminophen (Tylenol 325mg Tab) 650 mg PO Q6H PRN PRN Reason: MILD TO MOD PAIN Al Hydrox/Mg Hydrox/Simethicone (Maalox Plus 30 Ml) 30 ml PO DAILY PRN PRN Reason: HEARTBURN/INDIGESTION Benztropine Mesylate (Cogentin) 0.5 mg PO BID [facility] Last Admin: 03/01/17 08:57 Dose: 0.5 mg Clonazepam (Klonopin) 1 mg PO HS [facility] PRN Reason: Protocol Last Admin: 02/28/17 22:14 Dose: 1 mg Clonazepam (Klonopin) 1 mg PO BID [facility] PRN Reason: Protocol Last Admin: 03/01/17 08:57 Dose: 1 mg Divalproex Sodium (Depakote Dr(*Bid*)) 500 mg PO AMHS [facility] Last Admin: 03/01/17 08:59 Dose: 500 mg Magnesium Hydroxide (Milk Of Magnesia) 30 ml PO DAILY PRN PRN Reason: constipation Magnesium Hydroxide (Milk Of Magnesia) 30 ml PO ONCE ONE Stop: 03/01/17 10:45 Nicotine (Nicoderm Cq) 1 patch TD DAILY [facility] Last Admin: 03/01/17 08:56 Dose: 1 patch Risperidone (Risperdal Tab) 2 mg PO BID [facility] PRN Reason: Protocol Last Admin: 03/01/17 08:57 Dose: 2 mg Ziprasidone (Geodon Cap) 20 mg PO Q6H PRN; Protocol PRN Reason: Agitation Last Admin: 02/28/17 22:14 Dose: 20 mg Ziprasidone (Geodon Inj) 20 mg IM Q6H PRN; Protocol PRN Reason: Agitation Zolpidem Tartrate (Ambien) 10 mg PO HS [facility] PRN Reason: Protocol Last Admin: 02/28/17 22:14 Dose: 10 mg - Constitutional Appears: No Acute Distress - Head Exam Head Exam: NORMAL INSPECTION - Eye Exam Eye Exam: Normal appearance - ENT Exam ENT Exam: Mucous Membranes Moist - Respiratory Exam Respiratory Exam: Clear to Ausculation Bilateral - Cardiovascular Exam Cardiovascular Exam: REGULAR RHYTHM - GI/Abdominal Exam GI & Abdominal Exam: Normal Bowel Sounds - Extremities Exam Extremities Exam: Normal Inspection - Neurological Exam Neurological Exam: Alert, CN II-XII Intact, Oriented x3 - Skin Skin Exam: Warm Assessment and Plan - Assessment and Plan (Free Text) Assessment: bipolar s/p manic anxiety depression constipation drug use 1 hi bs Plan: as per psych add mom today encouragement w/ psych care meds diet groups mom
--- NOTE | 2017-03-01 12:15 | PCM.PYCHPN ---
Psychiatric Progress Note - Psychiatric Progress Note Patient seen today, length of contact: 30min Patient Chief Complaint: "I still hear voices, but now it is just mumbles..." Problems Identified/Issues Discussed: Suicide/ homicide prevention, past psychiatric h/o, current psychiatric symptoms , medical problems, risk/benefits and alternatives of medications, medications compliance, coping strategies, substance abuse h/o, relapse prevention, importance of follow up with psychiatrist and therapist, discharge plan. Medical Problems: pt reported being healthy high blood sugar Diagnostic Results: 02/25/17 11:30 02/25/17 11:30 Lab Results 02/26/17 07:10: Free T4 1.01, TSH 3rd Generation 0.90 02/26/17 07:10: Fasting Glucose 96, Triglycerides 96, Cholesterol 182, LDL Cholesterol Direct 124, HDL Cholesterol 51 02/25/17 11:30: Alcohol, Quantitative < 10 02/25/17 11:30: Salicylates < 1 L, Acetaminophen < 10.0 L 02/25/17 11:30: Urine Opiates Screen Negative, Urine Methadone Screen Negative, Ur Barbiturates Screen Negative, Ur Phencyclidine Scrn Negative, Ur Amphetamines Screen Negative, U Benzodiazepines Scrn Positive H, U Oth Cocaine Metabols Negative, U Cannabinoids Screen Positive H 02/25/17 11:30: Sodium 143, Potassium 3.9, Chloride 109 H, Carbon Dioxide 21, Anion Gap 17, BUN 9, Creatinine 0.8, Est GFR ( Amer) > 60, Est GFR (Non- Af Amer) > 60, Random Glucose 133 H, Calcium 9.8, Total Bilirubin 0.8, AST 19, ALT 23, Alkaline Phosphatase 81, Lactate Dehydrogenase 437, Total Creatine Kinase 73, Troponin I < 0.01, Total Protein 8.5 H, Albumin 5.1 H, Globulin 3.4, Albumin/Globulin Ratio 1.5 02/25/17 11:30: Urine Color Yellow, Urine Appearance Sl cloudy, Urine pH 5.5, Ur Specific [place] 1.015, Urine Protein Negative, Urine Glucose (UA) Negative, Urine Ketones Negative, Urine Blood Small H, Urine Nitrate Negative, Urine Bilirubin Negative, Urine Urobilinogen 0.2, Ur Leukocyte Esterase Moderate H, Urine RBC 0 - 2, Urine WBC 1 - 3, Ur Epithelial Cells 6 - 8, Urine Bacteria Few , Urine HCG, Qual Negative 06/30/17 11:30: WBC 10.1 D, RBC 5.63, Hgb 17.0 H, Hct 47.2, MCV 83.8, MCH 30.2 , MCHC 36.0, RDW 13.0, Plt Count 412, MPV 9.4, Gran % 60.9, Lymph % (Auto) 32.1 , [place] % (Auto) 4.4, Eos % (Auto) 1.9, Baso % (Auto) 0.7, Gran # 6.18, Lymph # 3.3, [place] # 0.5, Eos # 0.2, Baso # 0.07 Vital Signs Temp Pulse Resp BP Pulse Ox 02/27/17 07:43 98.4 F 67 20 135/69 02/25/17 16:00 79 147/84 02/25/17 13:45 98.6 F 70 16 116/88 99 02/25/17 11:42 98.5 F 113 H 20 137/98 H 99 DSM 5 Symptoms Update: shortly pt is 41yo female, reported h/o bipolar disorder, h/o psychiatric admissions, most recent was in 2013, h/o suicidal attempts (most recent was about 5-6 years ago by overdose on meds), pt currently employed, lives with her 20yo son. Pt was seen by this administrative underwriter in the ED 02/18, this administrative underwriter offered admission, pt did not want to stay, this administrative underwriter provided pt with prescription for Trazodone (pt tolerated this medication well in the past), pt said that she has scheduled appt in the [place] outpatient [facility], pt was d/c AMA. this time pt came to the hospital looking for help for her depressive/ manic episode, irritability, suicidal and homicidal ideation, was not able to contract for safety, pt needed to be medicated in ED. patient was seen today next to the nursing station, presented to be calm, good hygiene, the same time patient requested Geodon at hs because of the "voices", pt is taking geodon less frequently. Pt said that she is feeling little better, at thimes "voices are bothering me, they want me to get into trouble", but now "it is just mumbles". so far pt tolerates meds well, no side effects observed or reported, AIMS 0, no EPS. patient reported that she had a good night sleep. as pt RN report pt was compliant with meds, no behavioral incidents, more pleasant, impulses are better controlled. Impression: Bipolar disorder I, mixed episode, severe with psychosis cannabis abus r/o substance induced mood disorder Medication Change: No (Risperdal was increased, Cogentin added yesterday) Medical Record Reviewed: Yes Consults ordered or reviewed: consult appreciated Mental Status Examination - Cognitive Function Orientation: Person Memory: Intact Attention: Poor (some improvement) Concentration: Poor (some improvement) Association: WNL Fund of Knowledge: WNL - Mood Mood: Depressed ("I feel happier"), Anxious - Affect Affect: Constricted (but today was more reactive) - Speech Speech: Appropriate - Formal Thought Process Formal Thought Process: Hallucinations ("it is just mumbles") - Suicidal Ideation Suicidal Ideation: No Plan: today pt adamantly denied thoughts of harming self or others. - Homicidal Ideation Homicidal Ideation: No Plan: today pt adamantly denied thoughts of harming self or others. Goal/Treatment Plan - Goal/Treatment Plan Need for Continued Stay: Remain at risks for inpatient hospitalization, Severe depression anxiety, Discharge may exacerbated symptoms, Severe functional impairment Progress Toward Problem(s) and Goals/Treatment Plan: milieu/structure/supportive therapy depakote 500mg bid for mood stabilization will check depakote level tomorrow risperdal 2mg bid for psychosis and mood stabilization cogentin 0.5mg po bid for EPS prevention ambien 10mg po hs for insomnia klonpin 1mg tid for mood stabilization med consult appreciated prn meds will monitor closely Estimated Date of D/C: 03/04/17 (will monitor closely)
--- NOTE | 2017-03-02 08:21 | CP.PCM.PN ---
Subjective - Date & Time of Evaluation Date of Evaluation: 03/02/17 Time of Evaluation: 07:00 - Subjective Subjective: seen in her room slept well no c/os this am reading a book +bm and feeling better taking the meds well feeling better good spirits no pain Objective - Vital Signs/Intake and Output Vital Signs (last 24 hours): Temp Pulse Resp BP Pulse Ox 98.2 F 72 20 118/74 99 02/28/17 07:26 03/01/17 16:00 02/28/17 07:26 03/01/17 16:00 02/25/17 13:45 - Medications Medications: Current Medications Acetaminophen (Tylenol 325mg Tab) 650 mg PO Q6H PRN PRN Reason: MILD TO MOD PAIN Al Hydrox/Mg Hydrox/Simethicone (Maalox Plus 30 Ml) 30 ml PO DAILY PRN PRN Reason: HEARTBURN/INDIGESTION Benztropine Mesylate (Cogentin) 0.5 mg PO BID [facility] Last Admin: 03/01/17 17:02 Dose: 0.5 mg Clonazepam (Klonopin) 1 mg PO HS [facility] PRN Reason: Protocol Last Admin: 03/01/17 21:32 Dose: 1 mg Clonazepam (Klonopin) 1 mg PO BID [facility] PRN Reason: Protocol Last Admin: 03/01/17 17:02 Dose: 1 mg Divalproex Sodium (Depakote Dr(*Bid*)) 500 mg PO AMHS [facility] Last Admin: 03/01/17 21:31 Dose: 500 mg Magnesium Hydroxide (Milk Of Magnesia) 30 ml PO DAILY PRN PRN Reason: constipation Nicotine (Nicoderm Cq) 1 patch TD DAILY [facility] Last Admin: 03/01/17 08:56 Dose: 1 patch Risperidone (Risperdal Tab) 2 mg PO BID [facility] PRN Reason: Protocol Last Admin: 03/01/17 17:05 Dose: 2 mg Ziprasidone (Geodon Cap) 20 mg PO Q6H PRN; Protocol PRN Reason: Agitation Last Admin: 02/28/17 22:14 Dose: 20 mg Ziprasidone (Geodon Inj) 20 mg IM Q6H PRN; Protocol PRN Reason: Agitation Zolpidem Tartrate (Ambien) 10 mg PO HS [facility] PRN Reason: Protocol Last Admin: 03/01/17 21:31 Dose: 10 mg - Constitutional Appears: No Acute Distress - Head Exam Head Exam: NORMAL INSPECTION, NORMOCEPHALIC - Eye Exam Eye Exam: Normal appearance - ENT Exam ENT Exam: Mucous Membranes Moist - Respiratory Exam Respiratory Exam: Clear to Ausculation Bilateral - Cardiovascular Exam Cardiovascular Exam: REGULAR RHYTHM - GI/Abdominal Exam GI & Abdominal Exam: Soft, Normal Bowel Sounds - Neurological Exam Neurological Exam: Alert, Oriented x3 - Skin Skin Exam: Warm Assessment and Plan - Assessment and Plan (Free Text) Assessment: constipation resolved bipolar manic Plan: cont w/ mom as needed cont w/ psych care meds encouragement will follow
[2017-03-02] MEDS: Divalproex 500 mg DR(BID formulation) PO SCH ×2 (10:00→22:08)
--- NOTE | 2017-03-02 14:22 | PCM.PYCHPN ---
Psychiatric Progress Note - Psychiatric Progress Note Patient seen today, length of contact: 30min Patient Chief Complaint: "I feel much better" Problems Identified/Issues Discussed: Suicide/ homicide prevention, past psychiatric h/o, current psychiatric symptoms , medical problems, risk/benefits and alternatives of medications, medications compliance, coping strategies, substance abuse h/o, relapse prevention, importance of follow up with psychiatrist and therapist, discharge plan. Medical Problems: pt reported being healthy high blood sugar Diagnostic Results: 02/25/17 11:30 02/25/17 11:30 Lab Results 02/26/17 07:10: Free T4 1.01, TSH 3rd Generation 0.90 02/26/17 07:10: Fasting Glucose 96, Triglycerides 96, Cholesterol 182, LDL Cholesterol Direct 124, HDL Cholesterol 51 02/25/17 11:30: Alcohol, Quantitative < 10 02/25/17 11:30: Salicylates < 1 L, Acetaminophen < 10.0 L 02/25/17 11:30: Urine Opiates Screen Negative, Urine Methadone Screen Negative, Ur Barbiturates Screen Negative, Ur Phencyclidine Scrn Negative, Ur Amphetamines Screen Negative, U Benzodiazepines Scrn Positive H, U Oth Cocaine Metabols Negative, U Cannabinoids Screen Positive H 02/25/17 11:30: Sodium 143, Potassium 3.9, Chloride 109 H, Carbon Dioxide 21, Anion Gap 17, BUN 9, Creatinine 0.8, Est GFR ( Amer) > 60, Est GFR (Non- Af Amer) > 60, Random Glucose 133 H, Calcium 9.8, Total Bilirubin 0.8, AST 19, ALT 23, Alkaline Phosphatase 81, Lactate Dehydrogenase 437, Total Creatine Kinase 73, Troponin I < 0.01, Total Protein 8.5 H, Albumin 5.1 H, Globulin 3.4, Albumin/Globulin Ratio 1.5 02/25/17 11:30: Urine Color Yellow, Urine Appearance Sl cloudy, Urine pH 5.5, Ur Specific [place] 1.015, Urine Protein Negative, Urine Glucose (UA) Negative, Urine Ketones Negative, Urine Blood Small H, Urine Nitrate Negative, Urine Bilirubin Negative, Urine Urobilinogen 0.2, Ur Leukocyte Esterase Moderate H, Urine RBC 0 - 2, Urine WBC 1 - 3, Ur Epithelial Cells 6 - 8, Urine Bacteria Few , Urine HCG, Qual Negative 02/25/17 11:30: WBC 10.1 D, RBC 5.63, Hgb 17.0 H, Hct 47.2, MCV 83.8, MCH 30.2 , MCHC 36.0, RDW 13.0, Plt Count 412, MPV 9.4, Gran % 60.9, Lymph % (Auto) 32.1 , [place] % (Auto) 4.4, Eos % (Auto) 1.9, Baso % (Auto) 0.7, Gran # 6.18, Lymph # 3.3, [place] # 0.5, Eos # 0.2, Baso # 0.07 Vital Signs Temp Pulse Resp BP Pulse Ox 02/27/17 07:43 98.4 F 67 20 135/69 02/25/17 16:00 79 147/84 02/25/17 13:45 98.6 F 70 16 116/88 99 02/25/17 11:42 98.5 F 113 H 20 137/98 H 99 Laboratory Results - last 24 hr 03/02/17 07:00 Valproic Acid 71 DSM 5 Symptoms Update: shortly pt is 41yo female, reported h/o bipolar disorder, h/o psychiatric admissions, most recent was in 2013, h/o suicidal attempts (most recent was about 5-6 years ago by overdose on meds), pt currently employed, lives with her 20yo son. Pt was seen by this sheet writer in the ED 02/18, this sheet writer offered admission, pt did not want to stay, this sheet writer provided pt with prescription for Trazodone (pt tolerated this medication well in the past), pt said that she has scheduled appt in the [place] outpatient clinic, pt was d/c AMA. this time pt came to the hospital looking for help for her depressive/ manic episode, irritability, suicidal and homicidal ideation, was not able to contract for safety, pt needed to be medicated in ED. patient was seen today next to the nursing station, presented to be calm, good hygiene, no prn meds so far. Pt said that she is feeling better, pt said that she likes medications, pt was educated to be compliant and pt was educated that she will be d/c home tomorrow. Pt said that she feels anxious about that, later on asked PRN meds, klonopin was given with good result. pt wants to got to [place] outpatient clinic. so far pt tolerates meds well, no side effects observed or reported, AIMS 0, no EPS. patient reported that she had a good night sleep. as pt RN report pt was compliant with meds, no behavioral incidents, more pleasant, impulses are better controlled. Impression: Bipolar disorder I, mixed episode, severe with psychosis cannabis abus r/o substance induced mood disorder Medication Change: No (adjusted yesterday) Medical Record Reviewed: Yes Consults ordered or reviewed: consult appreciated Mental Status Examination - Cognitive Function Orientation: Person Memory: Intact Attention: WNL Concentration: WNL Association: [facility] Fund of Knowledge: WN - Mood Mood: Depressed ("I feel happier"), Anxious (less anxious ) - Affect Affect: Constricted (but today was more reactive) - Speech Speech: Appropriate - Formal Thought Process Formal Thought Process: Hallucinations (denied) - Suicidal Ideation Suicidal Ideation: No - Homicidal Ideation Homicidal Ideation: No Goal/Treatment Plan - Goal/Treatment Plan Need for Continued Stay: Remain at risks for inpatient hospitalization, Severe depression anxiety, Discharge may exacerbated symptoms, Severe functional impairment Progress Toward Problem(s) and Goals/Treatment Plan: milieu/structure/supportive therapy depakote 500mg bid for mood stabilization depakote level 03/02/17 71 risperdal 2mg bid for psychosis and mood stabilization cogentin 0.5mg po bid for EPS prevention ambien 10mg po hs for insomnia klonpin 1mg tid for mood stabilization med consult appreciated prn meds will monitor closely will be d/c tomorrow Estimated Date of D/C: 03/04/17 (will monitor closely)
[2017-03-02] MEDS ORDERED: Naproxen 275 mg Tab PO PRN (16:17)
[2017-03-03 07:44] VITALS: BP 124/72; PULSE 67; TEMP 98.2
--- NOTE | 2017-03-03 09:41 | CP.PCM.PN ---
Subjective - Date & Time of Evaluation Date of Evaluation: 03/03/17 Time of Evaluation: 08:00 - Subjective Subjective: seen in room this am doing well feeling no c/os she tells me she leaving here today eats well Objective - Vital Signs/Intake and Output Vital Signs (last 24 hours): Temp Pulse Resp BP Pulse Ox 98.2 F 67 20 124/72 99 03/03/17 07:43 03/03/17 07:43 03/03/17 07:43 03/03/17 07:43 02/25/17 13:45 - Medications Medications: Current Medications Acetaminophen (Tylenol 325mg Tab) 650 mg PO Q6H PRN PRN Reason: MILD TO MOD PAIN Al Hydrox/Mg Hydrox/Simethicone (Maalox Plus 30 Ml) 30 ml PO DAILY PRN PRN Reason: HEARTBURN/INDIGESTION Benztropine Mesylate (Cogentin) 0.5 mg PO BID [facility] Last Admin: 03/03/17 08:52 Dose: 0.5 mg Clonazepam (Klonopin) 1 mg PO HS [facility] PRN Reason: Protocol Last Admin: 03/02/17 22:08 Dose: 1 mg Clonazepam (Klonopin) 1 mg PO BID [facility] PRN Reason: Protocol Last Admin: 03/03/17 08:52 Dose: 1 mg Divalproex Sodium (Depakote Dr(*Bid*)) 500 mg PO AMHS [facility] Last Admin: 03/02/17 22:08 Dose: 500 mg Magnesium Hydroxide (Milk Of Magnesia) 30 ml PO DAILY PRN PRN Reason: constipation Naproxen (Anaprox) 275 mg PO Q12H PRN PRN Reason: Pain, moderate (4-7) Last Admin: 03/02/17 16:42 Dose: 275 mg Nicotine (Nicoderm Cq) 1 patch TD DAILY [facility] Last Admin: 03/03/17 08:51 Dose: 1 patch Risperidone (Risperdal Tab) 2 mg PO BID [facility] PRN Reason: Protocol Last Admin: 03/03/17 08:51 Dose: 2 mg Ziprasidone (Geodon Cap) 20 mg PO Q6H PRN; Protocol PRN Reason: Agitation Last Admin: 02/28/17 22:14 Dose: 20 mg Ziprasidone (Geodon Inj) 20 mg IM Q6H PRN; Protocol PRN Reason: Agitation Zolpidem Tartrate (Ambien) 10 mg PO HS [facility] PRN Reason: Protocol Last Admin: 03/02/17 22:08 Dose: 10 mg - Constitutional Appears: No Acute Distress - Head Exam Head Exam: NORMAL INSPECTION - Eye Exam Eye Exam: Normal appearance - ENT Exam ENT Exam: Mucous Membranes Moist - Respiratory Exam Respiratory Exam: Clear to Ausculation Bilateral, NORMAL BREATHING PATTERN - Cardiovascular Exam Cardiovascular Exam: REGULAR RHYTHM - GI/Abdominal Exam GI & Abdominal Exam: Normal Bowel Sounds - Extremities Exam Extremities Exam: Normal Inspection - Neurological Exam Neurological Exam: Alert, CN II-XII Intact, Oriented x3 - Psychiatric Exam Psychiatric exam: Normal Affect - Skin Skin Exam: Warm Assessment and Plan - Assessment and Plan (Free Text) Assessment: bipolar manic anxiety depression constipation improved Plan: cont tmt as per psych she tells me she is going home today ??
[2017-03-03] MEDS: Divalproex 500 mg DR(BID formulation) PO SCH (12:59)
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
== END 2017-03-03 14:01 | disposition home or self-care (01) | DRG 885 ==
LOC: ED 11:09 → ERH 12:43 → PSYC 13:54
PROVIDERS: ADMIT Psychiatry & Neurology Psychiatry; ATTEND Psychiatry & Neurology Psychiatry
DX: F31.9 Bipolar disorder, unspecified (principal); F19.94 Other psychoactive substance use, unspecified with psychoactive substance-induced mood disorder; F29 Unspecified psychosis not due to a substance or known physiological condition; F17.210 Nicotine dependence, cigarettes, uncomplicated; F12.10 Cannabis abuse, uncomplicated; F41.8 Other specified anxiety disorders; G47.00 Insomnia, unspecified; K59.00 Constipation, unspecified; Z91.410 Personal history of adult physical and sexual abuse; R40.2412 Glasgow coma scale score 13-15, at arrival to emergency department; Z91.5 Personal history of self-harm; R73.9 Hyperglycemia, unspecified

== ENCOUNTER 2018-03-20 13:09 | Inpatient (IN) | payer BC, OTHER ==
[2018-03-20 13:21] VITALS: BMI 27.0
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
[2018-03-20 16:32] LABS: ALB/GLOB RATIO 1.5 (1.1-1.8); ALBUMIN 4.6 g/dL (3.0-4.8); ALT/SGPT 16 U/L (7-56); AST/SGOT 30 U/L (14-36); BLOOD UREA NITROGEN 10 mg/dL (7-21); CALCIUM 9.4 mg/dL (8.4-10.5); GFR AFRICAN-AMERICAN > 60; GFR NON-AFRICAN AMERICAN > 60
[2018-03-20 16:33] LABS: ACETAMINOPHEN < 10.0 ug/ml (10.0-20.0); BASO # 0.04 K/mm3 (0.0-2.0); BASO % 0.5 % (0.0-3.0); EOS # 0.2 (0.0-0.7); GRAN # 4.46 (1.4-6.5); GRAN % 60.8 % (50.0-68.0); HEMOGLOBIN 14.8 g/dL (12.0-16.0); LYMPH # 2.3 (1.2-3.4); LYMPH % 31.8 % (22.0-35.0); MEAN CELL VOLUME 81.3 fl (80.0-105.0); MEAN CORPUSCULAR HEMOGLOBIN 28.9 pg (25.0-35.0); MEAN CORPUSCULAR HGB CONC 35.6 g/dl (31.0-37.0); MEAN PLATELET VOLUME 9.4 fl (7.0-11.0); MONO # 0.4 (0.1-0.6); MONO % 4.9 % (1.0-6.0); RBC 5.12 10^6/uL (3.5-6.1); RED CELL DISTRIBUTION WIDTH 12.9 % (11.5-14.5); SALICYLATE < 1 mg/dL (2.0-20.0); WHITE BLOOD COUNT 7.4 10^3/ul (4.5-11.0)
[2018-03-20 16:49] LABS: URINE APPEARANCE CLEAR (CLEAR); URINE BILIRUBIN NEGATIVE (NEGATIVE); URINE BLOOD SMALL (NEGATIVE); URINE COLOR YELLOW (YELLOW); URINE GLUCOSE (UA) NEGATIVE (NEGATIVE); URINE LEUKOCYTE ESTERASE TRACE Leu/uL (NEGATIVE); URINE PROTEIN TRACE mg/dL (<30 mg/dL); URINE UROBILINOGEN 0.2 E.U./dL (<1 E.U./dL)
[2018-03-20 17:27] LABS: URINE BACTERIA MOD (NEG); URINE CALCIUM OXALATE CRYSTALS SMALL /hpf
--- NOTE | 2018-03-20 17:35 | RAD ---
Date of service: 03/20/2018 HISTORY: psych COMPARISON: 02/25/2017. FINDINGS: LUNGS: No active pulmonary disease. PLEURA: No significant pleural effusion identified, no pneumothorax apparent. CARDIOVASCULAR: Normal. OSSEOUS STRUCTURES: No significant abnormalities. VISUALIZED UPPER ABDOMEN: Normal. OTHER FINDINGS: None. IMPRESSION: No active disease. No significant interval change compared to the prior examination(s).
[2018-03-20 18:40] LABS: OPIATES, UR NEGATIVE (NEGATIVE)
[2018-03-20 18:53] LABS: BARBITURATES, UR NEGATIVE (NEGATIVE); BENZODIAZEPINES, UR POSITIVE (NEGATIVE); PHENCYCLIDINE, UR NEGATIVE (NEGATIVE)
--- NOTE | 2018-03-20 19:06 | CARD ---
APPROVED REPORT Date of service: 03/20/2018 EKG Measurement Heart [id number] <Conclusion> Sinus bradycardia Nonspecific T wave abnormality Abnormal ECG
[2018-03-20] MEDS: Oxycodone/Acetaminophen 10/325 mg Tab PO SCH (22:12)
[2018-03-20] MEDS: Divalproex 250 mg DR (BID formulation) PO SCH (22:15)
--- NOTE | 2018-03-21 02:53 | PCM.BM ---
<IggyJayson - Last Filed: 03/21/18 02:50> Treatment Plan Problems - Problems identified on initial assessmt Medication Nonadherence Date Initiated: 03/20/18 Time Initiated: 19:30 Assessment reference: NA Status: Active Priority: 1 Delusions Date Initiated: 03/20/18 Time Initiated: 19:30 Assessment reference: NA Status: Active Priority: 2 Thought Process Date Initiated: 03/20/18 Time Initiated: 19:30 Assessment reference: NA Status: Active Priority: 3 Ineffective Coping Date Initiated: 03/20/18 Time Initiated: 19:30 Assessment reference: NA Status: Active Priority: 4 Altered Sleep Patterns Date Initiated: 03/20/18 Time Initiated: 19:30 Assessment reference: NA Status: Active Priority: 5 Treatment assets and liabiliti Patient Assests: adapts well, cooperative, insightful, motivated, self-reliant, physically healthy, good support system, negotiates basic needs, financial stabiity, good interpersonal skills Patient Liabilities: substance abuse - Milieu Protocol Maintain good personal hygiene: daily Encourage regular showers, every shift Remind patient to perform daily oral care, every shift Assist patient to perform ADL's Maintain personal safety: every shift Educate patient to report safety concerns to staff, every shift Monitor environment for contraband/sharps Medication safety: Monitor for expected outcome, potential side effects: every shift, Assess barriers to learning: every shift, Assess readiness for medication education: every shift Family Contact Family involvement: Family/SO is involved Family contact: Patient agrees to contact - Goals for Treatment Patient goals for treatment: Reduce voices, reduce depression Discharge/Continuing Care - Education Needs Education Needs: Patient Medication, Patient Diagnosis/Disease Process, Patient Coping Skills, Patient Anger Management skills, Patient Placement options, Patient Community resources, Patient Activities of Daily Living, Patient Pain, Patient Nutrition, Patient Uses of Medical Equipment, Patient Health Practices/ Safety, Patient Personal Hygiene/Grooming, Patient Aftercare Safety Plan - Discharge Discharge Criteria: Tolerates medication w/o severe side effects, Normal sleep pattern <Sharmaine Shanks - Last Filed: 03/21/18 15:21> - Diagnosis (1) Bipolar disorder, curr episode depressed, severe, w/psychotic features Status: Acute Interventions: 03/21/18 15:21 Psychoeducation Psychopharmacology/adjustment of medications as needed/ monitoring possible side effects Monitor blood level of mood stabilizers Evaluate pt on daily basis Compliance with medications and follow up appointments Suicide and homicide risk assessment and prevention, coping strategies, safety plan Relapse prevention Reduction of symptoms Improve functional status Family involvement As outpatient: cognitive behavioral therapy (2) Cannabis abuse Status: Resolved Interventions: 03/21/18 15:22 Maintaining sobriety Relapse prevention Possible rehabilitation Motivational interviewing 12-step programs: AA meetings <Shanta Ching - Last Filed: 03/22/18 15:46> Family Contact Family involvement: Famliy/SO not involved <Radhika Sullivan - Last Filed: 03/23/18 14:33>
[2018-03-21 03:11] VITALS: O2SAT 100
[2018-03-21 08:22] LABS: GLUCOSE,FASTING 94 mg/dL (65-110); HDL CHOLESTEROL 42 mg/dL (29-60)
[2018-03-21 08:33] LABS: LDL CHOLESTEROL 114 mg/dL (0-129)
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
[2018-03-21] MEDS: Divalproex 250 mg DR (BID formulation) PO SCH ×2 (09:22→21:36)
[2018-03-21] MEDS: Oxycodone/Acetaminophen 10/325 mg Tab PO SCH (09:23)
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
--- NOTE | 2018-03-22 01:01 | CON ---
DATE: 03/21/2018 ORTHOPEDIC CONSULTATION HISTORY OF PRESENT ILLNESS: Patient is a 42-year-old female with subjective complaint of vague right hip pain since she has had arthroscopy for the right hip on 12/2016 for some orthopedic abnormality. Then the pain continued, and another MRI was done. She was found to have a labral tear, which was impressed on the first MRI. She still has this vague discomfort of her right hip, made worse by twisting and extremes of motion of the right hip and cannot completely squat well. She said that she was told she has mild arthrosis of the right hip. I explained to her that is a seldom done procedure arthroscopy and should be done in the hands of somebody with a great experience. As she was told that she needs a second arthroscopy, I told her to go for a second opinion and try to accommodate your job where you could tolerate this mild discomfort over the right hip that is helped with Aleve or Motrin. So I told her to keep moving the hip as much as possible. Avoid strenuous activities. Hopefully, she could return to work with a steady job that might be able to accommodate her. 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 I would be suspicious about getting another surgical procedure and if done then done by a highly skilled arthroscopist, and she could find it out when she leaves this facility and get her worked up by a doctor. There is quite a few with procedures, and a know one who is Dr. Carbone in [facility]. Garcia Ardon DO [email or web address]
[2018-03-22 07:27] LABS: HEMOGLOBIN 13.3 g/dL (12.0-16.0); MEAN CELL VOLUME 82.8 fl (80.0-105.0); MEAN CORPUSCULAR HEMOGLOBIN 28.2 pg (25.0-35.0); RBC 4.72 10^6/uL (3.5-6.1); WHITE BLOOD COUNT 6.5 10^3/ul (4.5-11.0)
[2018-03-22 07:39] LABS: ALB/GLOB RATIO 1.5 (1.1-1.8); ALBUMIN 3.6 g/dL (3.0-4.8); ALT/SGPT 25 U/L (7-56); AST/SGOT 14 U/L (14-36); BLOOD UREA NITROGEN 12 mg/dL (7-21); CALCIUM 8.6 mg/dL (8.4-10.5); GFR AFRICAN-AMERICAN > 60; GFR NON-AFRICAN AMERICAN > 60
[2018-03-22] MEDS: Divalproex 250 mg DR (BID formulation) PO SCH (09:25)
--- NOTE | 2018-03-22 09:35 | PN ---
DATE: 03/22/2018 SUBJECTIVE: I saw her resting comfortably in bed. She is feeling a little bit better mentally. She is having some stomach upset from the nitrofurantoin I put her on for her urinary tract infection. I will change it to Bactrim and she feels uncomfortable urinating. She is on Ativan, now Bactrim, Cogentin, Depakote, Geodon, Klonopin, Nicoderm patch, Risperdal, Sonata, Zofran. She gets some Percocets. OBJECTIVE: VITAL SIGNS: She has a 98.1 temperature, 51 pulse, 109/62 blood pressure, 20 respiratory rate, 100% O2 saturation on room air. HEENT: Head is atraumatic, normocephalic. HEART: Regular rate. LUNGS: Clear to auscultation. ABDOMEN: Soft, nontender. Positive bowel sounds. No CVA tenderness. EXTREMITIES: No edema. DATA: She has a 6.5 white count, 13.3 hemoglobin, 39.1 hematocrit with 269 platelets. She has a 144 sodium, potassium 4.7, BUN 12, creatinine 0.7. GFR is greater than 60. Sugar is 95, calcium is 8.6, total bili is 0.4. AST is 14, ALT 25, alkaline phosphatase 48, total protein 6.1, albumin is 3.6. TSH is 2.42. She will be on some antibiotics for the UTI, Bactrim; hopefully, that will be okay. She will follow up with Psychiatry for depression, auditory hallucinations and her anxiety and we will follow. Ronald Sam DO
[2018-03-22] MEDS: Tmp-Smz 800 mg-160 mg DS Tab PO SCH ×2 (10:23→17:41)
[2018-03-22] MEDS: Oxycodone/Acetaminophen 10/325 mg Tab PO PRN ×2 (10:36→17:45)
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
[2018-03-22] MEDS: Divalproex 500 mg DR(BID formulation) PO SCH (22:04)
[2018-03-23] MEDS: Divalproex 500 mg DR(BID formulation) PO SCH ×2 (09:15→21:58)
[2018-03-23] MEDS: Tmp-Smz 800 mg-160 mg DS Tab PO SCH ×2 (09:15→16:20)
[2018-03-23] MEDS: Oxycodone/Acetaminophen 10/325 mg Tab PO PRN ×2 (09:25→16:20)
--- NOTE | 2018-03-23 10:25 | PN ---
DATE: 03/23/2018 SUBJECTIVE: I saw her resting comfortably in bed. She slept well. She is feeling better. She likes this new antibiotics for the urine better than the other one. No stomach pains and the urine is starting to feel better when she urinates. She is on Ativan, Bactrim, Cogentin, Depakote, Effexor, Geodon, Klonopin, Nicoderm, Percocet, Risperdal, Sonata and Zofran. OBJECTIVE: VITAL SIGNS: She has a 98 temperature, 58 pulse, 110/64 blood pressure, 20 respiratory rate.' HEENT: Head is atraumatic, normocephalic. HEART: Regular rate. LUNGS: Clear to auscultation. ABDOMEN: Soft. EXTREMITIES: No edema. She tells me she is feeling better. Last labs on 03/22/2018, she did quite well. Thyroid is good. She is here with UTI, depression, auditory hallucinations, anxiety. Hopefully, she will continue to improve. I am happy with Bactrim antibiotic, it is better than the nitrofurantoin which bothered her and I will continue to follow. I encouraged her to participate in groups and take her medications. Ronald Sam DO cc: MD Viktoria (Delete if not dictated.)
--- NOTE | 2018-03-23 10:45 | PCM.PYCHPN ---
<Cheryl Cruz - Last Filed: 03/23/18 10:51> Psychiatric Progress Note - Psychiatric Progress Note Patient seen today, length of contact: 30 minutes Patient Chief Complaint: Im doing ok. The medications are good. Problems Identified/Issues Discussed: Suicide/ homicide prevention, past psychiatric h/o, current psychiatric symptoms , medical problems, risk/benefits and alternatives of medications, medications compliance, coping strategies, substance abuse h/o, relapse prevention, importance of follow up with psychiatrist and therapist, discharge plan. Medical Problems: none Diagnostic Results: Vital Signs Temp Pulse Resp BP Pulse Ox 03/22/18 07:32 98.1 F 51 L 20 109/62 03/21/18 16:00 77 121/72 03/21/18 07:24 98.3 F 57 L 20 120/72 03/20/18 22:00 17 03/20/18 19:30 98.2 F 64 17 134/74 100 03/20/18 18:00 98.2 F 78 16 118/70 99 03/20/18 15:42 98.2 F 70 18 114/71 98 03/20/18 13:27 98.9 F 107 H 18 149/104 H 97 03/22/18 06:45 03/22/18 06:45 Lab Results 03/22/18 06:45: Sodium 144, Potassium 4.7, Chloride 108 H, Carbon Dioxide 26, Anion Gap 14, BUN 12, Creatinine 0.7, Est GFR ( Amer) > 60, Est GFR (Non- Af Amer) > 60, Random Glucose 95, Calcium 8.6, Total Bilirubin 0.4, AST 14 D, ALT 25, Alkaline Phosphatase 48, Total Protein 6.1, Albumin 3.6, Globulin 2.5, Albumin/Globulin Ratio 1.5 03/22/18 06:45: WBC 6.5, RBC 4.72, Hgb 13.3, Hct 39.1, MCV 82.8, MCH 28.2, MCHC 34.0, RDW 13.0, Plt Count 269, MPV 9.0 03/21/18 07:50: RPR Nonreactive 03/21/18 07:50: TSH 3rd Generation 2.42 03/21/18 07:50: Fasting Glucose 94, Triglycerides 111, Cholesterol 174, LDL Cholesterol Direct 114, HDL Cholesterol 42 03/20/18 18:16: Urine Opiates Screen Negative, Urine Methadone Screen Negative, Ur Barbiturates Screen Negative, Ur Phencyclidine Scrn Negative, Ur Amphetamines Screen Negative, U Benzodiazepines Scrn Positive H, U Oth Cocaine Metabols Negative, U Cannabinoids Screen Positive H 03/20/18 16:07: Alcohol, Quantitative < 10 03/20/18 16:07: Salicylates < 1 L, Acetaminophen < 10.0 L 03/20/18 16:07: Sodium 145, Potassium 4.3, Chloride 106, Carbon Dioxide 26, Anion Gap 17, BUN 10, Creatinine 0.6 L, Est GFR ( Amer) > 60, Est GFR ( Non-Af Amer) > 60, Random Glucose 103, Calcium 9.4, Magnesium 2.1, Total Bilirubin 0.6, AST 30, ALT 16, Alkaline Phosphatase 72, Total Protein 7.6, Albumin 4.6, Globulin 3.0, Albumin/Globulin Ratio 1.5 03/20/18 16:07: Urine Color Yellow, Urine Appearance Clear, Urine pH 6.0, Ur Specific [place] >= 1.030, Urine Protein Trace H, Urine Glucose (UA) Negative, Urine Ketones Trace H, Urine Blood Small H, Urine Nitrate Negative, Urine Bilirubin Negative, Urine Urobilinogen 0.2, Ur Leukocyte Esterase Trace H, Urine RBC 2 - 5, Urine WBC 1 - 3, Ur Epithelial Cells 4 - 5, Calcium Oxalate Crystal Small, Urine Bacteria Mod 03/20/18 16:07: WBC 7.4 D, RBC 5.12, Hgb 14.8, Hct 41.6, MCV 81.3, MCH 28.9, MCHC 35.6, RDW 12.9, Plt Count 303, MPV 9.4, Gran % 60.8, Lymph % (Auto) 31.8, [place] % (Auto) 4.9, Eos % (Auto) 2.0, Baso % (Auto) 0.5, Gran # 4.46, Lymph # ( Auto) 2.3, [place] # (Auto) 0.4, Eos # (Auto) 0.2, Baso # (Auto) 0.04 Temp Pulse Resp BP Pulse Ox 98.0 F 58 L 20 110/64 100 03/23/18 07:01 03/23/18 07:01 03/23/18 07:01 03/23/18 07:01 03/20/18 19:30 DSM 5 Symptoms Update: Cecille Hassan is a 42 yo [place] female with a history of bipolar disorder , cutting, and multiple psychiatric hospitalizations who presents to the ED on her own for help with depressive symptoms, racing thoughts, panic attacks, and cutting. She currently lives with her brother and works full-time at the [employer]. She was last hospitalized at [facility] for manic symptoms last year. She has no outpatient psychiatric care. She is prescribed Xanax and Percocet by her PCP. She specifically would like help with establishing outpatient psychiatric care. Patient is seen this morning by the nurses station. She has good grooming/ hygiene (dressed in casual clothing and wearing makeup). She says she slept well. She likes the medications thus far. She has some minor nausea, but she declines taking any medication for relief. She reports her symptoms have slightly improved. Her depressed mood is improving more so than her anxiety and racing thoughts. She is observed to be in the milieu, interacting with others, and participating in groups. No behavioral issues. She has good sleep and appetite. She is compliant with medications and is tolerating them well without significant side effects. Impression: Bipolar disorder Cannabis use disorder r/o PTSD r/o schizoaffective disorder r/o borderline personality traits Medication Change: No (increased VPA, added Effexor yesterday) Medical Record Reviewed: Yes Consults ordered or reviewed: medicine, ortho Mental Status Examination - Cognitive Function Orientation: Person, Place, Situation, Time Memory: Intact Attention: WNL Concentration: WNL Association: [facility] Fund of Knowledge: [facility] Decription of patient's judgement and insights: fair insight and judgment - Mood Mood: Neutral - Affect Affect: Other (full) - Speech Speech: Appropriate - Formal Thought Process Formal Thought Process: Hallucinations (patient reports voices, does not appear to be responding to internal stimuli) - Suicidal Ideation Suicidal Ideation: No - Homicidal Ideation Homicidal Ideation: No Goal/Treatment Plan - Goal/Treatment Plan Need for Continued Stay: Remain at risks for inpatient hospitalization, Severe depression anxiety, Discharge may exacerbated symptoms Progress Toward Problem(s) and Goals/Treatment Plan: Effexor 377.5 mg daily for depression and anxiety Depakote 500 mg bid for mood stabilization Klonopin 1 mg bid, qhs for anxiety Risperdal 1 mg bid for mood stabilization Cogentin 0.5 mg bid for ppx EPS Sonata 5 mg qhs prn for insomnia- required 03/21, 03/22 Percocet tid prn for moderate-severe pain- required 03/22 x1 Geodon and Ativan PO/IM prn for agitation- required PO x1 early AM 03/21 ( documented for insomnia) Medicine consult for UTI - Bactrim Orthopedic consult for right hip pain- nothing acutely problematic at this time Milieu and group therapy SW consult for discharge planning Patient was educated about risk/benefits and alternatives of medications, coping strategies (safety plan, suicide prevention), relapse prevention, importance of follow up with psychiatrist and therapist, stay away from drugs/ alcohol/smoking. Estimated Date of D/C: 03/28/18 - Smoking Cessation Smoking Cessation Initiated: Yes <Sharmaine Shanks - Last Filed: 03/23/18 15:53> Goal/Treatment Plan - Goal/Treatment Plan Progress Toward Problem(s) and Goals/Treatment Plan: agree with assessment and plan
[2018-03-24] MEDS: Tmp-Smz 800 mg-160 mg DS Tab PO SCH ×2 (08:18→15:48)
--- NOTE | 2018-03-24 08:31 | PCM.PYCHPN ---
<Cheryl Cruz - Last Filed: 03/24/18 09:00> Psychiatric Progress Note - Psychiatric Progress Note Patient seen today, length of contact: 30 minutes Patient Chief Complaint: Everythings good. No complaints. Problems Identified/Issues Discussed: Suicide/ homicide prevention, past psychiatric h/o, current psychiatric symptoms , medical problems, risk/benefits and alternatives of medications, medications compliance, coping strategies, substance abuse h/o, relapse prevention, importance of follow up with psychiatrist and therapist, discharge plan. Medical Problems: none Diagnostic Results: Vital Signs Temp Pulse Resp BP Pulse Ox 03/22/18 07:32 98.1 F 51 L 20 109/62 03/21/18 16:00 77 121/72 03/21/18 07:24 98.3 F 57 L 20 120/72 03/20/18 22:00 17 03/20/18 19:30 98.2 F 64 17 134/74 100 03/20/18 18:00 98.2 F 78 16 118/70 99 03/20/18 15:42 98.2 F 70 18 114/71 98 03/20/18 13:27 98.9 F 107 H 18 149/104 H 97 03/22/18 06:45 03/22/18 06:45 Lab Results 03/22/18 06:45: Sodium 144, Potassium 4.7, Chloride 108 H, Carbon Dioxide 26, Anion Gap 14, BUN 12, Creatinine 0.7, Est GFR ( Amer) > 60, Est GFR (Non- Af Amer) > 60, Random Glucose 95, Calcium 8.6, Total Bilirubin 0.4, AST 14 D, ALT 25, Alkaline Phosphatase 48, Total Protein 6.1, Albumin 3.6, Globulin 2.5, Albumin/Globulin Ratio 1.5 03/22/18 06:45: WBC 6.5, RBC 4.72, Hgb 13.3, Hct 39.1, MCV 82.8, MCH 28.2, MCHC 34.0, RDW 13.0, Plt Count 269, MPV 9.0 03/21/18 07:50: RPR Nonreactive 03/21/18 07:50: TSH 3rd Generation 2.42 03/21/18 07:50: Fasting Glucose 94, Triglycerides 111, Cholesterol 174, LDL Cholesterol Direct 114, HDL Cholesterol 42 03/20/18 18:16: Urine Opiates Screen Negative, Urine Methadone Screen Negative, Ur Barbiturates Screen Negative, Ur Phencyclidine Scrn Negative, Ur Amphetamines Screen Negative, U Benzodiazepines Scrn Positive H, U Oth Cocaine Metabols Negative, U Cannabinoids Screen Positive H 03/20/18 16:07: Alcohol, Quantitative < 10 03/20/18 16:07: Salicylates < 1 L, Acetaminophen < 10.0 L 03/20/18 16:07: Sodium 145, Potassium 4.3, Chloride 106, Carbon Dioxide 26, Anion Gap 17, BUN 10, Creatinine 0.6 L, Est GFR ( Amer) > 60, Est GFR ( Non-Af Amer) > 60, Random Glucose 103, Calcium 9.4, Magnesium 2.1, Total Bilirubin 0.6, AST 30, ALT 16, Alkaline Phosphatase 72, Total Protein 7.6, Albumin 4.6, Globulin 3.0, Albumin/Globulin Ratio 1.5 03/20/18 16:07: Urine Color Yellow, Urine Appearance Clear, Urine pH 6.0, Ur Specific [place] >= 1.030, Urine Protein Trace H, Urine Glucose (UA) Negative, Urine Ketones Trace H, Urine Blood Small H, Urine Nitrate Negative, Urine Bilirubin Negative, Urine Urobilinogen 0.2, Ur Leukocyte Esterase Trace H, Urine RBC 2 - 5, Urine WBC 1 - 3, Ur Epithelial Cells 4 - 5, Calcium Oxalate Crystal Small, Urine Bacteria Mod 03/20/18 16:07: WBC 7.4 D, RBC 5.12, Hgb 14.8, Hct 41.6, MCV 81.3, MCH 28.9, MCHC 35.6, RDW 12.9, Plt Count 303, MPV 9.4, Gran % 60.8, Lymph % (Auto) 31.8, [place] % (Auto) 4.9, Eos % (Auto) 2.0, Baso % (Auto) 0.5, Gran # 4.46, Lymph # ( Auto) 2.3, [place] # (Auto) 0.4, Eos # (Auto) 0.2, Baso # (Auto) 0.04 Temp Pulse Resp BP Pulse Ox 98.0 F 58 L 20 110/64 100 03/23/18 07:01 03/23/18 07:01 03/23/18 07:01 03/23/18 07:01 03/20/18 19:30 Temp Pulse Resp BP Pulse Ox 97.9 F 60 16 103/57 L 100 03/24/18 06:37 03/24/18 06:37 03/24/18 06:37 03/24/18 06:37 03/20/18 19:30 DSM 5 Symptoms Update: Cecille Hassan is a 42 yo [place] female with a history of bipolar disorder , cutting, and multiple psychiatric hospitalizations who presents to the ED on her own for help with depressive symptoms, racing thoughts, panic attacks, and cutting. She currently lives with her brother and works full-time at the [employer]. She was last hospitalized at [facility] for manic symptoms last year. She has no outpatient psychiatric care. She is prescribed Xanax and Percocet by her PCP. She specifically would like help with establishing outpatient psychiatric care. Patient is seen this morning in the day room. She is playing cards with another patient. She has good grooming/hygiene (dressed in casual clothing and wearing makeup). She says she slept well, and she likes the Sonata. She reports the voices are sounding farther away and her thoughts are slowing down. She believes she is making progress and moving in the right direction. She reports she spoke to about an outpatient office near where she works (see note for details). She is observed to be in the milieu, interacting with others, and participating in groups. No behavioral issues. She has good sleep and appetite. She is compliant with medications and is tolerating them well without significant side effects. Impression: Bipolar disorder Cannabis use disorder r/o PTSD r/o schizoaffective disorder r/o borderline personality traits Medication Change: No (recently increased VPA, added Effexor) Medical Record Reviewed: Yes Consults ordered or reviewed: medicine, ortho Mental Status Examination - Cognitive Function Orientation: Person, Place, Situation, Time Memory: Intact Attention: WNL Concentration: WNL Association: WNL Fund of Knowledge: WNL - Mood Mood: Neutral (good) - Affect Affect: Other (full) - Speech Speech: Appropriate - Formal Thought Process Formal Thought Process: Hallucinations (patient reports voices decreasing in intensity, does not appear to be responding to internal stimuli) - Suicidal Ideation Suicidal Ideation: No - Homicidal Ideation Homicidal Ideation: No Goal/Treatment Plan - Goal/Treatment Plan Need for Continued Stay: Remain at risks for inpatient hospitalization, Severe depression anxiety, Discharge may exacerbated symptoms Progress Toward Problem(s) and Goals/Treatment Plan: Effexor 37.5 mg daily for depression and anxiety Depakote 500 mg bid for mood stabilization- will check level Tuesday 03/27 Klonopin 1 mg bid, qhs for anxiety Risperdal 1 mg bid for mood stabilization Cogentin 0.5 mg bid for ppx EPS Sonata 5 mg qhs prn for insomnia- required 03/21, 03/22 Percocet tid prn for moderate-severe pain- required 03/22 x1 Geodon and Ativan PO/IM prn for agitation- required PO x1 early AM 03/21 ( documented for insomnia) Medicine consult for UTI - Bactrim Orthopedic consult for right hip pain- nothing acutely problematic at this time , recommend f/u as outpatient for 2nd opinion Milieu and group therapy SW consult for discharge planning Patient was educated about risk/benefits and alternatives of medications, coping strategies (safety plan, suicide prevention), relapse prevention, importance of follow up with psychiatrist and therapist, stay away from drugs/ alcohol/smoking. Estimated Date of D/C: 03/28/18 - Smoking Cessation Smoking Cessation Initiated: Yes <Chanel De Jesus - Last Filed: 03/24/18 11:39> Addendum Addendum: Reviewed Dr. Cruz's progress note. Patient is improving on the unit. She denies any major new concerns. Generally cooperative and appropriate during our interview. Hallucinations are improving and patient is tolerating her medications. She denies any sleep issues at this time. 03/24/18 11:34 03/24/18 11:38
[2018-03-24] MEDS: Oxycodone/Acetaminophen 10/325 mg Tab PO PRN ×2 (09:48→15:55)
[2018-03-24] MEDS: Divalproex 500 mg DR(BID formulation) PO SCH ×2 (10:01→21:41)
--- NOTE | 2018-03-24 12:03 | PN ---
DATE: 03/24/2018 SUBJECTIVE: I saw her resting in bed. She slept quite well last night. She tells me she is feeling better. She has no complaints. She is urinating better. She says the Bactrim is working well. She is on Ativan, Bactrim, Cogentin, Depakote, Effexor, Geodon, Klonopin, Nicoderm, Percocet, Risperdal, Sonata and Zofran. PHYSICAL EXAMINATION: VITAL SIGNS: Temperature 97.9, pulse 60, blood pressure 103/57, respiratory rate 16. HEART: Regular rate. LUNGS: Clear to auscultation. EXTREMITIES: No edema. LABORATORY DATA: Last labs on 03/22/2018 and she did well. Urine is improving. PLAN: We will continue with aggressive care as per Psychiatry. We will continue to monitor her. She is here for depression, auditory hallucinations, anxiety and urinary tract infection which is improving and overall, I do think she is improving. Ronald Sam DO MTDD
[2018-03-25] MEDS: Tmp-Smz 800 mg-160 mg DS Tab PO SCH ×2 (08:33→16:31)
[2018-03-25] MEDS: Oxycodone/Acetaminophen 10/325 mg Tab PO PRN ×2 (08:37→14:45)
[2018-03-25] MEDS: Divalproex 500 mg DR(BID formulation) PO SCH ×2 (09:02→21:01)
--- NOTE | 2018-03-25 09:26 | PCM.PYCHPN ---
Psychiatric Progress Note - Psychiatric Progress Note Patient seen today, length of contact: 30 minutes Patient Chief Complaint: "good" Problems Identified/Issues Discussed: I reviewed assessment and recent staff notes on the unit. I met with patient at bedside again this morning. She remains well-oriented to month, year, location and circumstances. He remembers me from my introduction and interview yesterday. Grooming is fair. Patient denies any new concerns and continues to report sustained improvement in depression. She feels more hopeful and denies wishes or suicidal thoughts. Affect is constricted though she reports her mood as "good". Patient denies having any hallucinations for 3 days thus far ( though reported "the voices are sounding farther away" to Dr. Cruz yesterday) . Thought process is coherent and goal-directed. Delusions were not elicited. She reports that her sleep and appetite are good. Patient continues to deny any new discomfort or pain. She is tolerating her medications. Staff notes indicate that patient has been calm and pleasant on the unit. She is visible and participating in unit activities. There have been no behavioral issues. Patient has been relating well to other patients and remains visible on the unit. Attending and participating in groups. There were no behavioral issues overnight. Diagnostic Results: Bipolar disorder Cannabis use disorder r/o PTSD r/o schizoaffective disorder r/o borderline personality traits Medication Change: No (recently increased VPA, added Effexor) Medical Record Reviewed: Yes Mental Status Examination - Cognitive Function Orientation: Person, Place, Situation, Time Memory: Intact Attention: WNL Concentration: WNL Association: WN Fund of Knowledge: WNL - Mood Mood: Neutral (good) - Affect Affect: Other (constricted) - Speech Speech: Appropriate - Formal Thought Process Formal Thought Process: Hallucinations (denies) - Suicidal Ideation Suicidal Ideation: No - Homicidal Ideation Homicidal Ideation: No Goal/Treatment Plan - Goal/Treatment Plan Need for Continued Stay: Remain at risks for inpatient hospitalization, Severe depression anxiety, Discharge may exacerbated symptoms Progress Toward Problem(s) and Goals/Treatment Plan: * c/w current tx and plan * Depakote 500 mg AMHS, checking VPA on 03/27/18 * Risperdal 1 mg AMHS * Cogentin 0.5 mg AMHS * Klonopin 0.5 mg BID and HS * Effexor 37.5 mg po daily * Sonata 5 mg po HS prn: insomnia * Geodon+Ativan prns * No new lab results noted today * Vitals reviewed and noted below: Selected Entries 03/24/18 03/25/18 06:37 07:11 Temperature 97.9 F 97.7 F Respiratory 16 20 Rate Blood Pressure 103/57 L 106/57 L Estimated Date of D/C: 03/28/18
--- NOTE | 2018-03-25 18:30 | PN ---
DATE: 03/25/2018 SUBJECTIVE: I saw her in the psychiatric floor. She is doing better. She is feeling better. She is re-piercing her ears and using an old earring to do the other part of her ear. She is in pretty good spirits. She is on Bactrim DS for urinary tract infection and she is improving. She is on Ativan, Bactrim, Cogentin, Depakote, Effexor, Geodon, Klonopin, Percocet, Risperdal, Sonata and Zofran. PHYSICAL EXAMINATION VITAL SIGNS: She has a 97.7 temperature, 62 pulse, 106/57 blood pressure, 20 respiratory rate. HEAD: Atraumatic, normocephalic. HEART: Regular rate. LUNGS: Clear to auscultation. ABDOMEN: Soft, nontender. Positive bowel sounds. EXTREMITIES: No edema. ASSESSMENT AND PLAN: Overall, she is doing well. She is here for urinary tract infection, depression, auditory hallucinations and anxiety. We will follow. Ronald Sam DO
[2018-03-26] MEDS: Tmp-Smz 800 mg-160 mg DS Tab PO SCH (08:57)
[2018-03-26] MEDS: Oxycodone/Acetaminophen 10/325 mg Tab PO PRN ×2 (08:57→21:53)
[2018-03-26] MEDS: Divalproex 500 mg DR(BID formulation) PO SCH ×2 (09:03→21:53)
--- NOTE | 2018-03-26 09:58 | PN ---
DATE: 03/26/2018 SUBJECTIVE: I saw her in the psychiatric floor. She slept fairly well, but she is having nauseousness, started yesterday, I am not sure why. Also indigestion and feels like something is getting stuck in her esophagus when she eats. I will call in GI, put her on Pepcid. Also stop the Bactrim and she is already on Zofran for the nauseousness. MEDICATIONS: She is on Ativan, Cogentin, Depakote, Effexor, Geodon, Klonopin, NicoDerm. I added Pepcid. She has Percocet, Risperdal, Sonata. She already has Zofran. PHYSICAL EXAMINATION: VITAL SIGNS: 97.6 temp, 62 pulse, 107/52 blood pressure, 20 respiratory rate. HEENT: Head is atraumatic, normocephalic. Throat is moist. NECK: Supple. HEART: Regular rate. LUNGS: Decreased breath sounds, but clear. ABDOMEN: Soft. Decreased bowel sounds. No guarding. No rebound. EXTREMITIES: No edema. LABORATORY DATA: Last lab was on 03/22/2018 and she did well. ASSESSMENT AND PLAN: She did have a urinary tract infection. She was on at least 5 days of antibiotics. I stopped them, may be that is causing her stomach upset, so I got the new medication for her. I will call in GI. May be they could schedule an outpatient endoscopy. We will see how she does with the change in medication. Also, I will stop the antibiotics. Continue with aggressive psychiatric care. Cecille Hassan who is now here for urinary tract infection, depression, auditory hallucinations, nausea, vomiting, anxiety and indigestion. Ronald Sam DO
[2018-03-26] MEDS ORDERED: Iohexol 240 (50 ml) ONE (10:11)
--- NOTE | 2018-03-26 10:21 | PCM.PYCHPN ---
Psychiatric Progress Note - Psychiatric Progress Note Patient seen today, length of contact: 30 minutes Patient Chief Complaint: "good" Problems Identified/Issues Discussed: I reviewed recent staff notes on the unit and met with patient at bedside again this morning. She remains well-oriented to month, year, location and circumstances. Grooming is fair. Patient denies any new concerns and continues to report sustained improvement in depression. She feels more hopeful and denies wishes or suicidal thoughts. Affect is constricted though she reports her mood as "good". She does seem a little brighter today. Patient denies having any hallucinations for 4 days thus far (though reported "the voices are sounding farther away" to Dr. Cruz on Tuesday). Thought process is coherent and goal-directed. Delusions were not elicited. She reports that her sleep and appetite remain good. Patient continues to deny any new side effects or pain however reports unpleasant sensation of feeling like "food is getting stuck in my throat when I swallow". Staff notes indicate that patient has been calm and pleasant on the unit. She is visible and participating in unit activities. There have been no behavioral issues. Patient has been relating well to other patients and remains visible on the unit. Attending and participating in groups. There were no behavioral issues over the weekend. Diagnostic Results: Bipolar disorder Cannabis use disorder r/o PTSD r/o schizoaffective disorder r/o borderline personality traits Medication Change: No ( ) Medical Record Reviewed: Yes Mental Status Examination - Cognitive Function Orientation: Person, Place, Situation, Time Memory: Intact Attention: WNL Concentration: WNL Association: WN Fund of Knowledge: WN - Mood Mood: Neutral (good) - Affect Affect: Other (full) - Speech Speech: Appropriate - Formal Thought Process Formal Thought Process: Hallucinations (patient reports voices decreasing in intensity, does not appear to be responding to internal stimuli) - Suicidal Ideation Suicidal Ideation: No - Homicidal Ideation Homicidal Ideation: No Goal/Treatment Plan - Goal/Treatment Plan Need for Continued Stay: Remain at risks for inpatient hospitalization, Severe depression anxiety, Discharge may exacerbated symptoms Progress Toward Problem(s) and Goals/Treatment Plan: * c/w current tx and plan * Depakote 500 mg AMHS, checking VPA on 03/27/18 * Risperdal 1 mg AMHS * Cogentin 0.5 mg AMHS * Klonopin 0.5 mg BID and HS * Effexor 37.5 mg po daily * Sonata 5 mg po HS prn: insomnia * Geodon+Ativan prns * No new weekend lab results * Vitals reviewed and noted below: Selected Entries 03/25/18 03/26/18 07:11 06:39 Temperature 97.7 F 97.6 F Pulse Rate 62 62 Respiratory 20 20 Rate Blood Pressure 106/57 L 107/52 L Estimated Date of D/C: 03/28/18
--- NOTE | 2018-03-26 13:18 | CT ---
Date of service: 03/26/2018 PROCEDURE: CT Abdomen and Pelvis with contrast HISTORY: Nausea vomiting. Esophageal discomfort. Negative test (concurrent with this examination). COMPARISON: None. TECHNIQUE: Oral contrast only. . Radiation dose: Total exam DLP = 631.24 mGy-cm. This CT exam was performed using one or more of the following dose reduction techniques: Automated exposure control, adjustment of the mA and/or kV according to patient size, and/or use of iterative reconstruction technique. FINDINGS: LOWER THORAX: Distal esophageal thickening incompletely visualized. Overall appearance likely represents esophagitis. LIVER: Unremarkable. No gross lesion or ductal dilatation. GALLBLADDER AND BILE DUCTS: Unremarkable. PANCREAS: Unremarkable. No gross lesion or ductal dilatation. SPLEEN: Unremarkable. ADRENALS: Unremarkable. No mass. KIDNEYS AND URETERS: Unremarkable. No hydronephrosis. No solid mass. VASCULATURE: Unremarkable. No aortic aneurysm. BOWEL: Gastric distention. The stomach is filled with fluid and debris. The point of narrowing appears to be in the vicinity of the pylorus beyond which the duodenum it is of normal luminal caliber. The findings are suspicious for gastric volvulus. Constipation without fecal impaction or obstruction. APPENDIX: Normal appendix. PERITONEUM: Unremarkable. No free fluid. No free air. LYMPH NODES: Unremarkable. No enlarged lymph nodes. BLADDER: Unremarkable. REPRODUCTIVE: Unremarkable. BONES: No acute fracture. Postoperative changes right hip. OTHER FINDINGS: None. 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 Distal esophageal thickening likely gastritis.
[2018-03-27 07:43] LABS: HEMOGLOBIN 13.6 g/dL (12.0-16.0); MEAN CELL VOLUME 85.2 fl (80.0-105.0); MEAN CORPUSCULAR HEMOGLOBIN 28.3 pg (25.0-35.0); MEAN CORPUSCULAR HGB CONC 33.2 g/dl (31.0-37.0); RBC 4.81 10^6/uL (3.5-6.1); RED CELL DISTRIBUTION WIDTH 13.1 % (11.5-14.5); WHITE BLOOD COUNT 4.9 10^3/ul (4.5-11.0)
[2018-03-27 08:06] LABS: ALB/GLOB RATIO 1.5 (1.1-1.8); ALT/SGPT 18 U/L (7-56); AST/SGOT 17 U/L (14-36); BLOOD UREA NITROGEN 13 mg/dL (7-21); CALCIUM 8.8 mg/dL (8.4-10.5); GFR AFRICAN-AMERICAN > 60; GFR NON-AFRICAN AMERICAN > 60
[2018-03-27] MEDS: Oxycodone/Acetaminophen 10/325 mg Tab PO PRN ×2 (08:35→17:16)
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
[2018-03-27] MEDS: Divalproex 500 mg DR(BID formulation) PO SCH ×2 (09:30→21:08)
--- NOTE | 2018-03-27 09:43 | PN ---
DATE: 03/27/2018 SUBJECTIVE: I saw her in her room this morning. She is taking the shower. She is still having the fullness in her abdomen. The CAT scan came back showing gastric volvulus. I was not expected that. Waiting for GI to come in. Otherwise, she is eating a little bit. She is moving the bowels. MEDICATIONS: She is on Ativan, Cogentin, Depakote, Effexor, Geodon, Klonopin, Nicoderm, Pepcid, Percocet, Risperdal, Sonata and Zofran. PHYSICAL EXAMINATION: VITAL SIGNS: She has a 98.5 temp, 64 pulse, 122/56 blood pressure, 18 respiratory rate. GENERAL: She is alert and comfortable. A little bit uncomfortable in the abdomen. We are not sure what this is. We will see what GI has to offer. LABORATORY DATA: She has a 4.9 white count, 13.6 hemoglobin, 257 platelets on 03/27/2018. She has a 146 sodium, potassium 4.8, BUN 13, creatinine 0.8, GFR is greater than 60, sugar is 92, calcium is 8.8, total bili is 0.3, AST is 17, ALT is 18, alk phos 62, total protein 6.7. TSH is 2.42. ASSESSMENT AND PLAN: She is here for numerous reasons. She had urinary tract infection, depression, auditory hallucinations, anxiety, nausea, vomiting, indigestion and gastric volvulus. Ronald Sam DO
[2018-03-27] MEDS: POLYETHYLENE GLYCOL 3350 17 GM/Dose PACKET PO SCH (13:23)
--- NOTE | 2018-03-27 15:15 | PCM.PYCHPN ---
Psychiatric Progress Note - Psychiatric Progress Note Patient seen today, length of contact: 30 minutes Patient Chief Complaint: "my mind is still racing, I still hear voices but not that intense as it was before" Problems Identified/Issues Discussed: Suicide/ homicide prevention, past psychiatric h/o, current psychiatric symptoms , medical problems, risk/benefits and alternatives of medications, medications compliance, coping strategies, substance abuse h/o, relapse prevention, importance of follow up with psychiatrist and therapist, discharge plan. Medical Problems: UTI, hip surgery Diagnostic Results: 03/27/18 07:15 03/27/18 07:15 Lab Results 03/27/18 12:10: Urine HCG, Qual Negative 03/27/18 07:15: Sodium 146, Potassium 4.8, Chloride 106, Carbon Dioxide 26, Anion Gap 18, BUN 13, Creatinine 0.8, Est GFR ( Amer) > 60, Est GFR (Non- Af Amer) > 60, Random Glucose 92, Calcium 8.8, Total Bilirubin 0.3, AST 17, ALT 18, Alkaline Phosphatase 62, Total Protein 6.7, Albumin 4.0, Globulin 2.6, Albumin/Globulin Ratio 1.5 03/27/18 07:15: WBC 4.9 D, RBC 4.81, Hgb 13.6, Hct 41.0, MCV 85.2, MCH 28.3, MCHC 33.2, RDW 13.1, Plt Count 257, MPV 9.0 03/27/18 07:15: Valproic Acid 66 03/22/18 06:45: Sodium 144, Potassium 4.7, Chloride 108 H, Carbon Dioxide 26, Anion Gap 14, BUN 12, Creatinine 0.7, Est GFR ( Amer) > 60, Est GFR (Non- Af Amer) > 60, Random Glucose 95, Calcium 8.6, Total Bilirubin 0.4, AST 14 D, ALT 25, Alkaline Phosphatase 48, Total Protein 6.1, Albumin 3.6, Globulin 2.5, Albumin/Globulin Ratio 1.5 03/22/18 06:45: WBC 6.5, RBC 4.72, Hgb 13.3, Hct 39.1, MCV 82.8, MCH 28.2, MCHC 34.0, RDW 13.0, Plt Count 269, MPV 9.0 03/21/18 07:50: RPR Nonreactive 03/21/18 07:50: TSH 3rd Generation 2.42 03/21/18 07:50: Fasting Glucose 94, Triglycerides 111, Cholesterol 174, LDL Cholesterol Direct 114, HDL Cholesterol 42 03/20/18 18:16: Urine Opiates Screen Negative, Urine Methadone Screen Negative, Ur Barbiturates Screen Negative, Ur Phencyclidine Scrn Negative, Ur Amphetamines Screen Negative, U Benzodiazepines Scrn Positive H, U Oth Cocaine Metabols Negative, U Cannabinoids Screen Positive H 03/20/18 16:07: Alcohol, Quantitative < 10 03/20/18 16:07: Salicylates < 1 L, Acetaminophen < 10.0 L 03/20/18 16:07: Sodium 145, Potassium 4.3, Chloride 106, Carbon Dioxide 26, Anion Gap 17, BUN 10, Creatinine 0.6 L, Est GFR ( Amer) > 60, Est GFR ( Non-Af Amer) > 60, Random Glucose 103, Calcium 9.4, Magnesium 2.1, Total Bilirubin 0.6, AST 30, ALT 16, Alkaline Phosphatase 72, Total Protein 7.6, Albumin 4.6, Globulin 3.0, Albumin/Globulin Ratio 1.5 03/20/18 16:07: Urine Color Yellow, Urine Appearance Clear, Urine pH 6.0, Ur Specific [place] >= 1.030, Urine Protein Trace H, Urine Glucose (UA) Negative, Urine Ketones Trace H, Urine Blood Small H, Urine Nitrate Negative, Urine Bilirubin Negative, Urine Urobilinogen 0.2, Ur Leukocyte Esterase Trace H, Urine RBC 2 - 5, Urine WBC 1 - 3, Ur Epithelial Cells 4 - 5, Calcium Oxalate Crystal Small, Urine Bacteria Mod 03/20/18 16:07: WBC 7.4 D, RBC 5.12, Hgb 14.8, Hct 41.6, MCV 81.3, MCH 28.9, MCHC 35.6, RDW 12.9, Plt Count 303, MPV 9.4, Gran % 60.8, Lymph % (Auto) 31.8, [place] % (Auto) 4.9, Eos % (Auto) 2.0, Baso % (Auto) 0.5, Gran # 4.46, Lymph # ( Auto) 2.3, [place] # (Auto) 0.4, Eos # (Auto) 0.2, Baso # (Auto) 0.04 Vital Signs Temp Pulse Resp BP Pulse Ox 03/27/18 06:51 98.5 F 64 18 122/56 L 03/26/18 16:18 67 113/59 L 03/26/18 06:39 97.6 F 62 20 107/52 L 03/25/18 07:11 97.7 F 62 20 106/57 L 03/24/18 06:37 97.9 F 60 16 103/57 L 03/23/18 16:00 67 136/80 03/23/18 07:01 98.0 F 58 L 20 110/64 03/22/18 16:00 70 120/68 03/22/18 07:32 98.1 F 51 L 20 109/62 03/21/18 16:00 77 121/72 03/21/18 07:24 98.3 F 57 L 20 120/72 03/20/18 22:00 17 03/20/18 19:30 98.2 F 64 17 134/74 100 03/20/18 18:00 98.2 F 78 16 118/70 99 03/20/18 15:42 98.2 F 70 18 114/71 98 03/20/18 13:27 98.9 F 107 H 18 149/104 H 97 DSM 5 Symptoms Update: Kieran Hassan is a 42 yo [place] female with a history of bipolar disorder , cutting, and multiple psychiatric hospitalizations who presents to the ED on her own for help with depressive symptoms, racing thoughts, panic attacks, and cutting. She currently lives with her brother and works full-time at the [employer]. She was last hospitalized at [facility] for manic symptoms last year. She has no outpatient psychiatric care. She is prescribed Xanax and Percocet by her PCP. She specifically would like help with establishing outpatient psychiatric care. Patient is seen this morning at the treatment team meeting. asper staff report pt is mostly in her room today. no behavioral incidents so far. pt reported that she still has "mind racing, hearing voices". pt was willing to increase risperdal, effexor. pt tolerated She is compliant with medications and is tolerating them well without significant side effects. Impression: Bipolar disorder Cannabis use disorder r/o PTSD r/o schizoaffective disorder r/o borderline personality traits Medication Change: Yes (effexor, risperdal increased) Medical Record Reviewed: Yes Consults ordered or reviewed: medical consult appreciated ortho consult appreciated Mental Status Examination - Cognitive Function Orientation: Person, Place, Situation, Time Memory: Intact Attention: WNL Concentration: WNL Association: WNL Fund of Knowledge: WNL - Mood Mood: Neutral (good) - Affect Affect: Other (full) - Speech Speech: Appropriate - Formal Thought Process Formal Thought Process: Hallucinations (patient reports voices decreasing in intensity, does not appear to be responding to internal stimuli) - Suicidal Ideation Suicidal Ideation: No - Homicidal Ideation Homicidal Ideation: No Goal/Treatment Plan - Goal/Treatment Plan Need for Continued Stay: Remain at risks for inpatient hospitalization, Severe depression anxiety, Discharge may exacerbated symptoms Progress Toward Problem(s) and Goals/Treatment Plan: Milieu and group therapy Effexor 75 mg daily for depression and anxiety Depakote 500 mg bid for mood stabilization Klonopin 1 mg bid, qhs for anxiety Risperdal 1 mg daily and 2mg po hs for mood stabilization Cogentin 0.5 mg bid for ppx EPS Sonata 5 mg qhs prn for insomnia- required 03/21, 03/22 Percocet tid prn for moderate-severe pain- required 03/22 x1 Geodon and Ativan PO/IM prn for agitation- required PO x1 early AM 03/21 ( documented for insomnia) Medicine consult for UTI - Bactrim Orthopedic consult for right hip pain- nothing acutely problematic at this time SW consult for discharge planning Patient was educated about risk/benefits and alternatives of medications, coping strategies (safety plan, suicide prevention), relapse prevention, importance of follow up with psychiatrist and therapist, stay away from drugs/ alcohol/smoking. Estimated Date of D/C: 03/29/18
[2018-03-28] MEDS: POLYETHYLENE GLYCOL 3350 17 GM/Dose PACKET PO SCH (08:54)
[2018-03-28] MEDS: Oxycodone/Acetaminophen 10/325 mg Tab PO PRN ×2 (08:56→19:17)
--- NOTE | 2018-03-28 10:15 | PN ---
Copied To: Ronald Sam DO Attending MD: Ronald Sam DO DATE: 03/28/2018 SUBJECTIVE: I saw her resting comfortably in bed. She is feeling much better. She is off the antibiotics. She was seen by GI. I will do outpatient workup on her. Belly is much better. She is eating better. She is feeling better. No issues of urination. She did have no abdominal pain. She is on Ativan, Cogentin, Depakote, Effexor, Geodon, Klonopin, MiraLAX, Nicoderm, Pepcid, Percocet, Risperdal, Sonata and Zofran. OBJECTIVE: VITAL SIGNS: Temperature 97.8, 59 pulse, 112/69 blood pressure, 16 respiratory rate. HEENT: Head is atraumatic, normocephalic. Throat is moist. NECK: Supple. HEART: Regular rate. LUNGS: Clear to auscultation bilaterally. ABDOMEN: Soft. Positive bowel sounds. Nontender. NEUROLOGIC: Feels well. EXTREMITIES: No edema. DATA: She has a 4.9 white count, 13.6, hemoglobin, 257, platelets. Sodium 146, potassium 4.8, BUN 30, creatinine 0.8. GFR is greater than 60. Sugar is 92, calcium is 8.8, total bilirubin is 0.3, AST is 17, ALT is 18, alkaline phosphatase 62. TSH is 2.42. Overall, I think she is doing well, is doing better as per Psychiatry and GI will see on the outpatient for her gastric volvulus. She had urinary tract infection here, dyspepsia, gastroesophageal reflux disease, bipolar, UTI. We will continue with aggressive treatment and care. Outpatient followup with GI and as per Psychiatry. Ronald Sam DO
[2018-03-28] MEDS: Divalproex 500 mg DR(BID formulation) PO SCH ×2 (10:31→21:18)
--- NOTE | 2018-03-28 16:17 | PCM.PYCHPN ---
Psychiatric Progress Note - Psychiatric Progress Note Patient seen today, length of contact: 30 minutes Patient Chief Complaint: "I feel little better, I think I will be okay to go tomorrow". Problems Identified/Issues Discussed: Suicide/ homicide prevention, past psychiatric h/o, current psychiatric symptoms , medical problems, risk/benefits and alternatives of medications, medications compliance, coping strategies, substance abuse h/o, relapse prevention, importance of follow up with psychiatrist and therapist, discharge plan. Medical Problems: UTI, hip surgery Diagnostic Results: 03/27/18 07:15 03/27/18 07:15 Lab Results 03/27/18 12:10: Urine HCG, Qual Negative 03/27/18 07:15: Sodium 146, Potassium 4.8, Chloride 106, Carbon Dioxide 26, Anion Gap 18, BUN 13, Creatinine 0.8, Est GFR ( Amer) > 60, Est GFR (Non- Af Amer) > 60, Random Glucose 92, Calcium 8.8, Total Bilirubin 0.3, AST 17, ALT 18, Alkaline Phosphatase 62, Total Protein 6.7, Albumin 4.0, Globulin 2.6, Albumin/Globulin Ratio 1.5 03/27/18 07:15: WBC 4.9 D, RBC 4.81, Hgb 13.6, Hct 41.0, MCV 85.2, MCH 28.3, MCHC 33.2, RDW 13.1, Plt Count 257, MPV 9.0 03/27/18 07:15: Valproic Acid 66 03/22/18 06:45: Sodium 144, Potassium 4.7, Chloride 108 H, Carbon Dioxide 26, Anion Gap 14, BUN 12, Creatinine 0.7, Est GFR ( Amer) > 60, Est GFR (Non- Af Amer) > 60, Random Glucose 95, Calcium 8.6, Total Bilirubin 0.4, AST 14 D, ALT 25, Alkaline Phosphatase 48, Total Protein 6.1, Albumin 3.6, Globulin 2.5, Albumin/Globulin Ratio 1.5 03/22/18 06:45: WBC 6.5, RBC 4.72, Hgb 13.3, Hct 39.1, MCV 82.8, MCH 28.2, MCHC 34.0, RDW 13.0, Plt Count 269, MPV 9.0 03/21/18 07:50: RPR Nonreactive 03/21/18 07:50: TSH 3rd Generation 2.42 03/21/18 07:50: Fasting Glucose 94, Triglycerides 111, Cholesterol 174, LDL Cholesterol Direct 114, HDL Cholesterol 42 03/20/18 18:16: Urine Opiates Screen Negative, Urine Methadone Screen Negative, Ur Barbiturates Screen Negative, Ur Phencyclidine Scrn Negative, Ur Amphetamines Screen Negative, U Benzodiazepines Scrn Positive H, U Oth Cocaine Metabols Negative, U Cannabinoids Screen Positive H 03/20/18 16:07: Alcohol, Quantitative < 10 03/20/18 16:07: Salicylates < 1 L, Acetaminophen < 10.0 L 03/20/18 16:07: Sodium 145, Potassium 4.3, Chloride 106, Carbon Dioxide 26, Anion Gap 17, BUN 10, Creatinine 0.6 L, Est GFR ( Amer) > 60, Est GFR ( Non-Af Amer) > 60, Random Glucose 103, Calcium 9.4, Magnesium 2.1, Total Bilirubin 0.6, AST 30, ALT 16, Alkaline Phosphatase 72, Total Protein 7.6, Albumin 4.6, Globulin 3.0, Albumin/Globulin Ratio 1.5 03/20/18 16:07: Urine Color Yellow, Urine Appearance Clear, Urine pH 6.0, Ur Specific [place] >= 1.030, Urine Protein Trace H, Urine Glucose (UA) Negative, Urine Ketones Trace H, Urine Blood Small H, Urine Nitrate Negative, Urine Bilirubin Negative, Urine Urobilinogen 0.2, Ur Leukocyte Esterase Trace H, Urine RBC 2 - 5, Urine WBC 1 - 3, Ur Epithelial Cells 4 - 5, Calcium Oxalate Crystal Small, Urine Bacteria Mod 03/20/18 16:07: WBC 7.4 D, RBC 5.12, Hgb 14.8, Hct 41.6, MCV 81.3, MCH 28.9, MCHC 35.6, RDW 12.9, Plt Count 303, MPV 9.4, Gran % 60.8, Lymph % (Auto) 31.8, [place] % (Auto) 4.9, Eos % (Auto) 2.0, Baso % (Auto) 0.5, Gran # 4.46, Lymph # ( Auto) 2.3, [place] # (Auto) 0.4, Eos # (Auto) 0.2, Baso # (Auto) 0.04 Vital Signs Temp Pulse Resp BP Pulse Ox 03/27/18 06:51 98.5 F 64 18 122/56 L 03/26/18 16:18 67 113/59 L 03/26/18 06:39 97.6 F 62 20 107/52 L 03/25/18 07:11 97.7 F 62 20 106/57 L 03/24/18 06:37 97.9 F 60 16 103/57 L 03/23/18 16:00 67 136/80 03/23/18 07:01 98.0 F 58 L 20 110/64 03/22/18 16:00 70 120/68 03/22/18 07:32 98.1 F 51 L 20 109/62 03/21/18 16:00 77 121/72 03/21/18 07:24 98.3 F 57 L 20 120/72 03/20/18 22:00 17 03/20/18 19:30 98.2 F 64 17 134/74 100 03/20/18 18:00 98.2 F 78 16 118/70 99 03/20/18 15:42 98.2 F 70 18 114/71 98 03/20/18 13:27 98.9 F 107 H 18 149/104 H 97 DSM 5 Symptoms Update: Kieran Hassan is a 42 yo [place] female with a history of bipolar disorder , cutting, and multiple psychiatric hospitalizations who presents to the ED on her own for help with depressive symptoms, racing thoughts, panic attacks, and cutting. She currently lives with her brother and works full-time at the [employer]. She was last hospitalized at [facility] for manic symptoms last year. She has no outpatient psychiatric care. She is prescribed Xanax and Percocet by her PCP. She specifically would like help with establishing outpatient psychiatric care. Patient is seen this morning At the nursing station, patient reported that she is slowly improving, patient reports that she likes medication what she is currently on, sleep is improving, mind racing as "better".Patient feels anxious about discharge, reassurance provided. asper staff patient started to go to groups, patient observed in groups today. no behavioral incidents so far. pt reported that "voices are better" pt was willing to increase risperdal, effexor. pt tolerated She is compliant with medications and is tolerating them well without significant side effects. Impression: Bipolar disorder Cannabis use disorder r/o PTSD r/o schizoaffective disorder r/o borderline personality traits Medication Change: No (effexor, risperdal increased yesterday) Medical Record Reviewed: Yes Consults ordered or reviewed: medical consult appreciated ortho consult appreciated Mental Status Examination - Cognitive Function Orientation: Person, Place, Situation, Time Memory: Intact Attention: WNL Concentration: WNL Association: WNL Fund of Knowledge: WNL - Mood Mood: Neutral (good) - Affect Affect: Other (full) - Speech Speech: Appropriate - Formal Thought Process Formal Thought Process: Hallucinations ("uunder control") - Suicidal Ideation Suicidal Ideation: No - Homicidal Ideation Homicidal Ideation: No Goal/Treatment Plan - Goal/Treatment Plan Need for Continued Stay: Remain at risks for inpatient hospitalization, Severe depression anxiety, Discharge may exacerbated symptoms Progress Toward Problem(s) and Goals/Treatment Plan: Milieu and group therapy Effexor 75 mg daily for depression and anxiety Depakote 500 mg bid for mood stabilization Klonopin 1 mg bid, qhs for anxiety Risperdal 1 mg daily and 2mg po hs for mood stabilization Cogentin 0.5 mg bid for ppx EPS Sonata 5 mg qhs prn for insomnia- required 03/21, 03/22 Percocet tid prn for moderate-severe pain- required 03/22 x1 Geodon and Ativan PO/IM prn for agitation- required PO x1 early AM 03/21 ( documented for insomnia) Medicine consult for UTI - Bactrim Orthopedic consult for right hip pain- nothing acutely problematic at this time SW consult for discharge planning Patient was educated about risk/benefits and alternatives of medications, coping strategies (safety plan, suicide prevention), relapse prevention, importance of follow up with psychiatrist and therapist, stay away from drugs/ alcohol/smoking. Estimated Date of D/C: 03/29/18
[2018-03-29 07:06] VITALS: PULSE 66; RESP 20; TEMP 98.1
[2018-03-29 07:07] VITALS: BP 106/72
[2018-03-29] MEDS: Oxycodone/Acetaminophen 10/325 mg Tab PO PRN (09:04)
[2018-03-29] MEDS: Divalproex 500 mg DR(BID formulation) PO SCH (09:04)
[2018-03-29] MEDS: POLYETHYLENE GLYCOL 3350 17 GM/Dose PACKET PO SCH (09:05)
--- NOTE | 2018-03-29 10:57 | PN ---
Copied To: Ronald Sam DO Attending MD: Ronald Sam DO DATE: 03/29/2018 SUBJECTIVE: Today, I saw her in her room in the psychiatric floor. She is very comfortable. She is doing better. No more abdominal pain or urinary tract issues. She is eating well, walking around in the room well. She does have a gastric volvulus, which will follow up on the outpatient with GI, but overall her depression and auditory hallucinations have improved that she tells me. We will see how Psychiatry wants to handle her, but she is definitely eating well and participates. She is on Ativan, Cogentin, Depakote, Effexor, Geodon, Klonopin, MiraLax, NicoDerm, Pepcid, Percocet, Risperdal, Sonata and Zofran. I asked her to quit smoking. She said she is going to try. PHYSICAL EXAMINATION: VITAL SIGNS: She has a 98.1 temp, 66 pulse, 106/70 blood pressure, 20 respiratory rate. HEENT: Head is atraumatic, normocephalic. HEART: Regular rate. LUNGS: Clear to auscultation. ABDOMEN: Soft, nontender. Positive bowel sounds. EXTREMITIES: No edema. LABORATORY DATA: Last labs are on 03/27/2018. Her CBC was good. Her chemistry was good. ASSESSMENT AND PLAN: I encouraged her to participate and hopefully she will continue to improve as per Psychiatry. We will follow. Cecille Hassan who I think is improving. Ronald Sam DO
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
== END 2018-03-29 11:58 | disposition home or self-care (01) | DRG 885 ==
LOC: ED 13:09 → ERH 16:28 → PSYC 18:44
PROVIDERS: ADMIT Psychiatry & Neurology Psychiatry; ATTEND Psychiatry & Neurology Psychiatry
DX: F31.5 Bipolar disorder, current episode depressed, severe, with psychotic features (principal); N39.0 Urinary tract infection, site not specified; R45.851 Suicidal ideations; F41.0 Panic disorder [episodic paroxysmal anxiety]; F12.10 Cannabis abuse, uncomplicated; F17.210 Nicotine dependence, cigarettes, uncomplicated; F22 Delusional disorders; F43.10 Post-traumatic stress disorder, unspecified; G47.00 Insomnia, unspecified; K21.9 Gastro-esophageal reflux disease without esophagitis; K31.89 Other diseases of stomach and duodenum; M16.11 Unilateral primary osteoarthritis, right hip; S01.01XA Laceration without foreign body of scalp, initial encounter; R58 Hemorrhage, not elsewhere classified; W26.0XXA Contact with knife, initial encounter; Z79.899 Other long term (current) drug therapy; Z91.410 Personal history of adult physical and sexual abuse; Z91.5 Personal history of self-harm; Z98.891 History of uterine scar from previous surgery; R40.2412 Glasgow coma scale score 13-15, at arrival to emergency department